=== PATIENT | male | born 1930 | race Caucasian/White ===

== ENCOUNTER 2017-01-13 13:29 | Emergency (ER) | payer MEDICARE, BC ==
--- NOTE | 2017-01-13 14:15 | ED ---
General Adult HPI - General Chief complaint: Recheck/Abnormal Lab/Rx Stated complaint: Poss HBP Time Seen by Provider: 01/13/17 14:01 Source: patient, family, RN notes reviewed, old records reviewed Mode of arrival: wheelchair Limitations: no limitations - History of Present Illness Initial comments: Chief complaint and history of present illness is a 6-year-old male here with his . Patient reports that they're checking her blood pressures morning his was high. They went to a local pharmacy remained high on arrival to emergency room patient's blood pressure was 199/106. Irritate his blood pressure pills for the morning. He hadspecific symptoms other than a little comfort to the top of his head. No evidence or complaints of any neuro deficits. No chest pain shortness of breath patient's otherwise alert - Related Data Home Medications Medication Instructions Recorded Confirmed Allopurinol [Zyloprim] 100 mg PO DAILY 04/25/16 01/13/17 Aspirin EC [Ecotrin Low Dose] 81 mg PO DAILY 04/25/16 01/13/17 Atorvastatin [Lipitor] 20 mg PO HS 04/25/16 01/13/17 Fish Oil/Dha/Epa [Fish Oil 1,200 1 cap PO DAILY@1200 04/25/16 01/13/17 mg Fish Oil] Latanoprost [Xalatan 0.005%] 1 drop BOTH EYES HS 04/25/16 01/13/17 Lutein 20 mg PO DAILY@1200 04/25/16 01/13/17 Nitroglycerin Sl Tabs [Nitrostat] 0.4 mg SUBLINGUAL Q5M PRN 04/25/16 01/13/17 Vit C/E/Zn/Coppr/Lutein/Zeaxan 1 cap PO BID@0800,1200 04/25/16 01/13/17 [Preservision Areds 2 Softgel] Vitamin E 1,000 unit PO DAILY@1200 04/25/16 01/13/17 Amiodarone [Cordarone] 50 mg PO DAILY 05/29/16 01/13/17 Carvedilol 6.25 mg PO HS 05/29/16 01/13/17 Lisinopril 40 mg PO DAILY 01/13/17 01/13/17 Allergies Allergy/AdvReac Type Severity Reaction Status Date / Time No Known Allergies Allergy Verified 01/13/17 13:56 Review of Systems ROS Statement: Those systems with pertinent positive or pertinent negative responses have been documented in the HPI. Review of systems no complaint of headache chest pain shortness of breath GI problems he reports he had a mild funny sensation in the top of his head. All systems are reviewed. 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 He's had an UT, hyperlipidemia, hypertension, osteoarthritis, BPH, syncopal episode. Patient surgeries include adenoidectomy low back surgery, bowel resection, CABG, heart cath without stents. Total right knee, pacemaker last year. He did have three-vessel CABG. Family history: Cancers. Patient ALLERGIES none smoking over 35 years ago. Drinks 2 beers per day recommended by his adding machine servicer. ROS Other: All systems not noted in ROS Statement are negative. Past Medical History Past Medical History: Coronary Artery Disease (CAD), Cancer, Chest Pain / Angina , Hyperlipidemia, Hypertension, Myocardial Infarction ([place]), Osteoarthritis (OA) , Prostate Disorder, Renal Disease, Syncope Additional Past Medical History / Comment(s): colon polyps-colon ca , gout Last Myocardial Infarction Date:: 2007 or 2008 History of Any Multi-Drug Resistant Organisms: None Reported Past Surgical History: Appendectomy, Back Surgery, Bowel Resection, Coronary Bypass/CABG, Heart Catheterization, Joint Replacement, Pacemaker Additional Past Surgical History / Comment(s): Three-vessel CABG in 1987, rt knee arthroscopy, right knee replacement, turp. maco cataracts, colonoscopy last one 10 years ago without any abnormalities, maco ing hernia repair, precancerous lesions on scalp lasered off. Past Anesthesia/Blood Transfusion Reactions: No Reported Reaction Type of Cardiac Device: Permanent Pacemaker Device Placement Date:: 05-24-16 Past Psychological History: No Psychological Hx Reported Additional Psychological History / Comment(s): PT IS BUT HIS LIVES IN [facility]. PT IS INDEPENDANT-NO OUTSIDE SERVICES. Smoking Status: Former smoker Past Alcohol Use History: Daily Additional Past Alcohol Use History / Comment(s): Patient smoked one pack per day for 40 years and quit in 1979. No marijuana or street drug use. He drinks 1-2 beers per day. Past Drug Use History: None Reported - Past Family History Mother Family Medical History: Cancer Additional Family Medical History / Comment(s): Mother at age 76 from stomach cancer Father Family Medical History: Cancer Additional Family Medical History / Comment(s): Father at age 76 from colon cancer Brother(s) Family Medical History: Cancer Additional Family Medical History / Comment(s): One brother at age 42 from brain cancer. One brother had myocardial infarction at age 29. Patient had a total of 4 brothers. Patient has 4 sisters with no major medical problems. Patient has 4 children, 2 boys and 2 girls. One son from a hunting accident. General Exam - General Exam Comments Initial Comments: General: The patient is awake and alert, in no distress, and does not appear acutely ill. Here because his blood pressure was high at home and at his pharmacy. His only symptom or complaint of be mild tingling to the top of his head. But no headache or other problems no neuro deficits. Vital signs shows temperature 97.0 pulse 68 respiratory rate 18 pulse ox 98% on room air blood pressure 199/ 106. Eye: Pupils are equal, round and reactive to light, extra-ocular movements are intact ; there is normal conjunctiva bilaterally. No signs of icterus. Ears, nose, mouth and throat: There are moist mucous membranes and no oral lesions. Neck: The neck is supple, there is no tenderness . Cardiovascular: There is a regular rate and rhythm. No murmur, rub or gallop is appreciated. Respiratory: Lungs are clear to auscultation, respirations are non-labored, breath sounds are equal. No wheezes, stridor, rales, or rhonchi. Gastrointestinal: No abdominal pain, no nausea no vomiting no organomegaly. Back: No complaint of back pain at this time. No flank discomfort. Musculoskeletal: Normal ROM, no tenderness, There is no pedal edema. There is no calf tenderness or swelling. Sensation intact. Patient states he is able to walk around [place] without becoming winded. Neurological: CN II-XII intact, There are no obvious motor or sensory deficits. Coordination appears grossly intact. Speech is normal. No focal or lateralizing findings. Skin: Skin is warm and dry and no rashes or lesions are noted. Gait is thin there are some bruises on the elbow. Limitations: no limitations Course Vital Signs 01/13/17 01/13/17 01/13/17 13:37 13:52 14:56 Temperature 97 F L Pulse Rate 66 68 68 Respiratory 20 18 18 Rate Blood Pressure 196/92 199/106 201/104 O2 Sat by Pulse 95 98 93 L Oximetry 01/13/17 01/13/17 01/13/17 15:36 16:21 17:12 Temperature Pulse Rate 59 L 61 67 Respiratory 18 18 18 Rate Blood Pressure 174/91 187/95 183/95 O2 Sat by Pulse 96 96 95 Oximetry 01/13/17 17:36 Temperature Pulse Rate 66 Respiratory 18 Rate Blood Pressure 168/78 O2 Sat by Pulse 94 L Oximetry Medical Decision Making - Medical Decision Making Medical decision making patient's white count 6.2 hemoglobin 15 hematocrit of 43 , potassium 4.9 BUN 31 creatinine 1.7 with a GFR of only 38. The patient will receive labetalol 10 mg IV push for elevated blood pressure His blood pressure came down to the 160 range systolic. He is feeling better the plans for the patient be discharged home advised to call follow-up with family physician continuous home education's. He is to return emergency room if is any difficulties. - Lab Data Result diagrams: 01/13/17 14:21 01/13/17 14:21 Lab Results 01/13/17 01/13/17 Range/Units 14:21 14:21 WBC 6.2 (3.8-10.6) k/uL RBC 4.48 (4.30-5.90) m/uL Hgb 15.1 (13.0-17.5) gm/dL Hct 43.4 (39.0-53.0) % MCV 96.9 (80.0-100.0) fL MCH 33.8 (25.0-35.0) pg MCHC 34.9 (31.0-37.0) g/dL RDW 13.4 (11.5-15.5) % Plt Count 156 (150-450) k/uL Neutrophils % 63 % Lymphocytes % 23 % Monocytes % 8 % Eosinophils % 2 % Basophils % 1 % Neutrophils # 3.9 (1.3-7.7) k/uL Lymphocytes # 1.4 (1.0-4.8) k/uL Monocytes # 0.5 (0-1.0) k/uL Eosinophils # 0.1 (0-0.7) k/uL Basophils # 0.1 (0-0.2) k/uL Sodium 142 (137-145) mmol/L Potassium 4.9 (3.5-5.1) mmol/L Chloride 108 H (98-107) mmol/L Carbon Dioxide 22 (22-30) mmol/L Anion Gap 12 mmol/L BUN 31 H (9-20) mg/dL Creatinine 1.70 H (0.66-1.25) mg/dL Est GFR (MDRD) Af Amer 47 (>60 ml/min/1.73 sqM) Est GFR (MDRD) Non-Af 38 (>60 ml/min/1.73 sqM) Glucose 89 (74-99) mg/dL Calcium 9.5 (8.4-10.2) mg/dL Total Bilirubin 1.0 (0.2-1.3) mg/dL AST 33 (17-59) U/L ALT 34 (21-72) U/L Alkaline Phosphatase 80 (38-126) U/L Total Protein 7.3 (6.3-8.2) g/dL Albumin 4.3 (3.5-5.0) g/dL Disposition Clinical Impression: Essential hypertension Disposition: HOME SELF-CARE Condition: Fair Instructions: Hypertension (ED) Additional Instructions: Medications as directed. If you blood pressure significantly elevated cannot bring it down by taking 1 extra tablet of your blood pressure pills follow-up with family physician or return emergency room Time of Disposition: 17:45
[2017-01-13 14:55] LABS: Calcium 9.5 mg/dL (8.4-10.2); Potassium 4.9 mmol/L (3.5-5.1); Total Protein 7.3 g/dL (6.3-8.2)
[2017-01-13 15:03] LABS: Basophils # (A) 0.1 k/uL (0-0.2); Basophils % (A) 1 %; CH 33.4; CHCM 34.6; Eosinophils # (A) 0.1 k/uL (0-0.7); Eosinophils % (A) 2 %; HCT 43.4 % (39.0-53.0); HDW 2.71; HGB 15.1 gm/dL (13.0-17.5); Luc % (Auto) 3; Lymphocytes # (A) 1.4 k/uL (1.0-4.8); Lymphocytes % (A) 23 %; MCH 33.8 pg (25.0-35.0); MCHC 34.9 g/dL (31.0-37.0); MCV 96.9 fL (80.0-100.0); Mean Platelet Volume 6.9; Monocytes # (A) 0.5 k/uL (0-1.0); Monocytes % (A) 8 %; Neutrophils # (A) 3.9 k/uL (1.3-7.7); Neutrophils % (A) 63 %; RBC 4.48 m/uL (4.30-5.90); RDW 13.4 % (11.5-15.5); WBC 6.2 k/uL (3.8-10.6); WBC (Perox) 5.94
[2017-01-13] MEDS ORDERED: LABETALOL 5 MG/ML VIAL MDV IVP STA (15:14)
[2017-01-13] MEDS ORDERED: ENALAPRILAT 1.25 MG/ML 1 ML VIAL IVP STA (16:15)
[2017-01-13 18:27] VITALS: BP 177/86; PULSE 69; RESP 16; TEMP 97.7
== END 2017-01-13 18:41 | disposition home or self-care (01) ==
LOC: EC 13:29
DX: I10 Essential (primary) hypertension (principal); I25.10 Atherosclerotic heart disease of native coronary artery without angina pectoris; E78.5 Hyperlipidemia, unspecified; I25.2 Old myocardial infarction; Z95.0 Presence of cardiac pacemaker; Z95.1 Presence of aortocoronary bypass graft; Z79.82 Long term (current) use of aspirin; Z79.899 Other long term (current) drug therapy; Z87.891 Personal history of nicotine dependence
CPT/HCPCS: 36415; 80053; 85025; 93005; 96374; 96375; 99284

== ENCOUNTER 2017-02-28 14:12 | Observation (INO) | payer MEDICARE, BC ==
--- NOTE | 2017-02-28 14:51 | ED ---
General Adult HPI - General Chief complaint: Chest Pain Stated complaint: Chest pain Time Seen by Provider: 02/28/17 14:15 Source: patient, RN notes reviewed Mode of arrival: wheelchair Limitations: no limitations - History of Present Illness Initial comments: This is a 86-year-old male with past medical history significant for coronary artery disease. Patient has had bypass surgery as well as a pacemaker placed. Patient comes in today because he was dizzy today. Patient states he felt a little nauseated but did not vomit. Patient states had to grab onto something he would've fallen down. Patient states also associated with that he was having some chest tightness and felt short of breath. Patient states he did not have any palpitations. Patient denies any recent fever or chills. Patient denies any abdominal pain patient denies any vomiting or diarrhea recently. Patient denies any near syncopal episodes. Patient states he has had a couple previous episodes of dizziness but they were not associated with chest pain difficulty breathing and the dizziness episodes in the past have been considerably worse than this one. Patient states few days that he had a dizzy episode and he did vomit. Patient also complains of posterior neck pain into the occipital region of his head. Patient states she does have full range of motion of his neck however. - Related Data Home Medications Medication Instructions Recorded Confirmed Allopurinol [Zyloprim] 100 mg PO DAILY 04/25/16 02/28/17 Aspirin EC [Ecotrin Low Dose] 81 mg PO DAILY 04/25/16 02/28/17 Atorvastatin [Lipitor] 20 mg PO HS 04/25/16 02/28/17 Fish Oil/Dha/Epa [Fish Oil 1,200 1 cap PO DAILY@1200 04/25/16 02/28/17 mg Fish Oil] Latanoprost [Xalatan 0.005%] 1 drop BOTH EYES HS 04/25/16 02/28/17 Lutein 20 mg PO DAILY@1200 04/25/16 02/28/17 Nitroglycerin Sl Tabs [Nitrostat] 0.4 mg SUBLINGUAL Q5M PRN 04/25/16 02/28/17 Vit C/E/Zn/Coppr/Lutein/Zeaxan 1 cap PO BID@0800,1200 04/25/16 02/28/17 [Preservision Areds 2 Softgel] Vitamin E 1,000 unit PO DAILY@1200 08/09/16 06/14/17 Amiodarone [Cordarone] 50 mg PO DAILY 05/29/16 02/28/17 Carvedilol 6.25 mg PO HS 05/29/16 02/28/17 Lisinopril 30 mg PO DAILY 02/28/17 02/28/17 amLODIPine [Norvasc] 2.5 mg PO DAILY 02/28/17 02/28/17 Allergies Allergy/AdvReac Type Severity Reaction Status Date / Time No Known Allergies Allergy Verified 02/28/17 15:19 Review of Systems ROS Statement: Those systems with pertinent positive or pertinent negative responses have been documented in the HPI. ROS Other: All systems not noted in ROS Statement are negative. Past Medical History Past Medical History: Coronary Artery Disease (CAD), Cancer, Chest Pain / Angina , Hyperlipidemia, Hypertension, Myocardial Infarction ([place]), Osteoarthritis (OA) , Prostate Disorder, Renal Disease, Syncope Additional Past Medical History / Comment(s): colon polyps-colon ca , gout Last Myocardial Infarction Date:: 2007 or 2008 History of Any Multi-Drug Resistant Organisms: None Reported Past Surgical History: Appendectomy, Back Surgery, Bowel Resection, Coronary Bypass/CABG, Heart Catheterization, Joint Replacement, Pacemaker Additional Past Surgical History / Comment(s): Three-vessel CABG in 1987, rt knee arthroscopy, right knee replacement, turp. maco cataracts, colonoscopy last one 10 years ago without any abnormalities, maco ing hernia repair, precancerous lesions on scalp lasered off. Past Anesthesia/Blood Transfusion Reactions: No Reported Reaction Type of Cardiac Device: Permanent Pacemaker Device Placement Date:: 05-24-16 Past Psychological History: No Psychological Hx Reported Additional Psychological History / Comment(s): PT IS BUT HIS LIVES IN [facility]. PT IS INDEPENDANT-NO OUTSIDE SERVICES. Smoking Status: Former smoker Past Alcohol Use History: Daily Additional Past Alcohol Use History / Comment(s): Patient smoked one pack per day for 40 years and quit in 1979. No marijuana or street drug use. He drinks 1-2 beers per day. Past Drug Use History: None Reported - Past Family History Mother Family Medical History: Cancer Additional Family Medical History / Comment(s): Mother at age 76 from stomach cancer Father Family Medical History: Cancer Additional Family Medical History / Comment(s): Father at age 76 from colon cancer Brother(s) Family Medical History: Cancer Additional Family Medical History / Comment(s): One brother at age 42 from brain cancer. One brother had myocardial infarction at age 29. Patient had a total of 4 brothers. Patient has 4 sisters with no major medical problems. Patient has 4 children, 2 boys and 2 girls. One son from a hunting accident. General Exam - General Exam Comments Initial Comments: GENERAL: Patient is well-developed and well-nourished. Patient is nontoxic and well- hydrated and is in no acute distress. ENT: Neck is soft and supple. No significant lymphadenopathy is noted. Oropharynx is clear. Moist mucous membranes. Neck has full range of motion without eliciting any pain. EYES: The sclera were anicteric and conjunctiva were pink and moist. Extraocular movements were intact and pupils were equal round and reactive to light. Eyelids were unremarkable. PULMONARY: Unlabored respirations. Good breath sounds bilaterally. Scattered crackles right base CARDIOVASCULAR: There is a regular rate and rhythm without any murmurs gallops or rubs. ABDOMEN: Soft and nontender with normal bowel sounds. No palpable organomegaly was noted. There is no palpable pulsatile mass. SKIN: Skin is clear with no lesions or rashes and otherwise unremarkable. NEUROLOGIC: Patient is alert and oriented x3. Cranial nerves II through XII are grossly intact. Motor and sensory are also intact. Normal speech, volume and content. Symmetrical smile. Finger to nose testing is normal bilaterally MUSCULOSKELETAL: Normal extremities with adequate strength and full range of motion. No lower extremity swelling or edema. No calf tenderness. LYMPHATICS: No significant lymphadenopathy is noted PSYCHIATRIC: Normal psychiatric evaluation. Normal interpersonal interactions appears functionally intact in deals appropriately with others. No signs of depression. No signs of anxiety. Limitations: no limitations Course Vital Signs 02/28/17 02/28/17 02/28/17 14:14 15:14 15:33 Temperature 97.5 F L 97.6 F Pulse Rate 75 73 Pulse Rate [ 71 Incident Response Consultant ] Respiratory 18 18 18 Rate Blood Pressure 192/85 133/80 O2 Sat by Pulse 99 95 Oximetry Medical Decision Making - Medical Decision Making EKG shows normal sinus rhythm at 77 bpm ND interval is 208 QRSs 158 QT interval is 428 QTC is 484. Patient's EKG shows no ST segment elevation or depression. Chest x-ray shows no acute abnormality. Patient continues to be dizzy and have some intermittent chest tightness. - Lab Data Result diagrams: 02/28/17 14:35 02/28/17 14:35 Lab Results 02/28/17 02/28/17 02/28/17 Range/Units 14:35 14:35 14:35 WBC 7.3 (3.8-10.6) k/uL RBC 4.25 L (4.30-5.90) m/uL Hgb 14.0 (13.0-17.5) gm/dL Hct 40.4 (39.0-53.0) % MCV 95.0 (80.0-100.0) fL MCH 33.0 (25.0-35.0) pg MCHC 34.7 (31.0-37.0) g/dL RDW 13.2 (11.5-15.5) % Plt Count 154 (150-450) k/uL Neutrophils % 72 % Lymphocytes % 18 % Monocytes % 7 % Eosinophils % 1 % Basophils % 1 % Neutrophils # 5.3 (1.3-7.7) k/uL Lymphocytes # 1.3 (1.0-4.8) k/uL Monocytes # 0.5 (0-1.0) k/uL Eosinophils # 0.1 (0-0.7) k/uL Basophils # 0.0 (0-0.2) k/uL PT (9.0-12.0) sec INR (<1.1) APTT (22.0-30.0) sec Sodium 142 (137-145) mmol/L Potassium 4.2 (3.5-5.1) mmol/L Chloride 109 H (98-107) mmol/L Carbon Dioxide 21 L (22-30) mmol/L Anion Gap 12 mmol/L BUN 36 H (9-20) mg/dL Creatinine 1.81 H (0.66-1.25) mg/dL Est GFR (MDRD) Af Amer 43 (>60 ml/min/1.73 sqM) Est GFR (MDRD) Non-Af 36 (>60 ml/min/1.73 sqM) Glucose 137 H (74-99) mg/dL Calcium 9.3 (8.4-10.2) mg/dL Magnesium 2.1 (1.6-2.3) mg/dL Total Bilirubin 0.9 (0.2-1.3) mg/dL AST 22 (17-59) U/L ALT 25 (21-72) U/L Alkaline Phosphatase 80 (38-126) U/L Total Creatine Kinase 112 (55-170) U/L CK-MB (CK-2) 3.4 H* (0.0-2.4) ng/mL CK-MB (CK-2) Rel Index 3.0 Troponin I <0.012 (0.000-0.034) ng/mL Total Protein 7.0 (6.3-8.2) g/dL Albumin 4.3 (3.5-5.0) g/dL 02/28/17 Range/Units 14:35 WBC (3.8-10.6) k/uL RBC (4.30-5.90) m/uL Hgb (13.0-17.5) gm/dL Hct (39.0-53.0) % MCV (80.0-100.0) fL MCH (25.0-35.0) pg MCHC (31.0-37.0) g/dL RDW (11.5-15.5) % Plt Count (150-450) k/uL Neutrophils % % Lymphocytes % % Monocytes % % Eosinophils % % Basophils % % Neutrophils # (1.3-7.7) k/uL Lymphocytes # (1.0-4.8) k/uL Monocytes # (0-1.0) k/uL Eosinophils # (0-0.7) k/uL Basophils # (0-0.2) k/uL PT 10.6 (9.0-12.0) sec INR 1.0 (<1.1) APTT 25.2 (22.0-30.0) sec Sodium (137-145) mmol/L Potassium (3.5-5.1) mmol/L Chloride (98-107) mmol/L Carbon Dioxide (22-30) mmol/L Anion Gap mmol/L BUN (9-20) mg/dL Creatinine (0.66-1.25) mg/dL Est GFR (MDRD) Af Amer (>60 ml/min/1.73 sqM) Est GFR (MDRD) Non-Af (>60 ml/min/1.73 sqM) Glucose (74-99) mg/dL Calcium (8.4-10.2) mg/dL Magnesium (1.6-2.3) mg/dL Total Bilirubin (0.2-1.3) mg/dL AST (17-59) U/L ALT (21-72) U/L Alkaline Phosphatase (38-126) U/L Total Creatine Kinase (55-170) U/L CK-MB (CK-2) (0.0-2.4) ng/mL CK-MB (CK-2) Rel Index Troponin I (0.000-0.034) ng/mL Total Protein (6.3-8.2) g/dL Albumin (3.5-5.0) g/dL Disposition Clinical Impression: Chest pain, Dizziness Disposition: ADMITTED IP TO THIS HOSP Referrals: Reyes Dela Cruz MD [Primary Care Provider] - 1-2 days Time of Disposition: 16:01
[2017-02-28 15:13] LABS: Basophils % (A) 1 %; CH 33.1; CHCM 35.1; Eosinophils # (A) 0.1 k/uL (0-0.7); Eosinophils % (A) 1 %; HCT 40.4 % (39.0-53.0); HDW 2.64; Luc # (Auto) 0.15; Luc % (Auto) 2; Lymphocytes # (A) 1.3 k/uL (1.0-4.8); Lymphocytes % (A) 18 %; MCHC 34.7 g/dL (31.0-37.0); Mean Platelet Volume 6.8; Monocytes # (A) 0.5 k/uL (0-1.0); Monocytes % (A) 7 %; Neutrophils # (A) 5.3 k/uL (1.3-7.7); Neutrophils % (A) 72 %; RBC 4.25 m/uL (4.30-5.90); RDW 13.2 % (11.5-15.5); WBC 7.3 k/uL (3.8-10.6); WBC (Perox) 7.28
--- NOTE | 2017-02-28 15:19 | CT ---
EXAMINATION TYPE: CT brain wo con DATE OF EXAM: 02/28/2017 COMPARISON: 05/22/2016 INDICATION: Patient complains of low posterior head/neck pressure and dizziness. DLP: 800.7 mGycm, Automated exposure control for dose reduction was used. CONTRAST: None CT of the brain is performed utilizing 3 mm thick sections through the posterior fossa and 3 mm thick sections through the remaining calvarium. Study is performed within 24 hours of arrival to the hosp ital. No abnormal hyperdensity is present to suggest an acute intracranial hemorrhage. No mass lesion is evident. No acute infarcts are evident. Some minimal periventricular white matter hypodensity may be present, likely on the basis of chronic white matter ischemic change. Ventricles and sulci are slightly prominent for the patient age. Paranasal sinuses and mastoid air cells within the [id number] are clear. IMPRESSIONS: 1. Mild age-related atrophy.
[2017-02-28 15:20] LABS: Calcium 9.3 mg/dL (8.4-10.2); Magnesium 2.1 mg/dL (1.6-2.3); Potassium 4.2 mmol/L (3.5-5.1); Total Bilirubin 0.9 mg/dL (0.2-1.3)
[2017-02-28 15:21] LABS: Partial Thromboplastin Time 25.2 sec (22.0-30.0); Prothrombin Time 10.6 sec (9.0-12.0)
--- NOTE | 2017-02-28 15:23 | XR ---
EXAMINATION TYPE: XR chest 2V DATE OF EXAM: 02/28/2017 COMPARISON: Chest x-ray May 29, 2016. HISTORY: Chest pain and dizziness. TECHNIQUE: Frontal and lateral views of the chest are obtained. FINDINGS: Post-CABG changes with mediastinal clips and sternal wires is again seen. There is chronic parenchymal change without suspicious focal air space opacity, pleural effusion, or pneumothorax see n. The cardiac silhouette size remains within normal limits with dual lead pacemaker redemonstrated. The osseous structures are intact. IMPRESSION: Chronic changes without acute process. No significant change from prior.
[2017-02-28 15:33] LABS: Creatine Kinase 112 U/L (55-170)
[2017-02-28 15:46] LABS: Troponin I <0.012 ng/mL (0.000-0.034)
[2017-02-28 15:57] LABS: Creatine Kinase MB 3.4 ng/mL (0.0-2.4)
[2017-02-28] MEDS ORDERED: NITROGLYCERIN SL TABS 0.4 MG TAB SUBLINGUAL PRN ×2 (16:04→18:32)
[2017-02-28] MEDS ORDERED: ASPIRIN 81 MG CHEW PO STA (16:04)
[2017-02-28] MEDS ORDERED: MECLIZINE 12.5 MG TAB PO PRN (16:17)
[2017-02-28] MEDS: NITROGLYCERIN OINT 1 INCH/GM PACKET TOPICAL SCH ×2 (18:35→23:02)
[2017-02-28 20:59] LABS: Creatine Kinase 107 U/L (55-170)
[2017-02-28] MEDS ORDERED: ATORVASTATIN 20 MG TAB PO SCH (21:00)
[2017-02-28] MEDS ORDERED: CARVEDILOL 6.25 MG TAB PO SCH (21:00)
[2017-02-28] MEDS ORDERED: LATANOPROST 0.005% OPHTH DROPS 2.5 ML BTL BOTH EYES SCH (21:00)
[2017-02-28 21:11] LABS: Troponin I <0.012 ng/mL (0.000-0.034)
[2017-02-28 21:13] LABS: Creatine Kinase MB 3.6 ng/mL (0.0-2.4)
[2017-02-28 22:09] LABS: Appearance,Urine Clear (Clear); Bilirubin,Urine Negative (Negative); Glucose,Urine (UA) Negative (Negative); Ketones,Urine Negative (Negative); Leukocyte Esterase,Urine Negative (Negative); Nitrite,Urine Negative (Negative); PH, Urine 5.5 (5.0-8.0); Protein,Urine Negative (Negative); UA Billing (MACRO vs. MICRO) CHEM; Urobilinogen,Urine <2.0 mg/dL (<2.0)
[2017-02-28] MEDS: HEPARIN SODIUM,PORCINE 5,000 UNIT/ML 1 ML VIAL SQ SCH (23:01)
[2017-03-01 03:21] LABS: Cholesterol 101 mg/dL (<200); HDL Cholesterol 34 mg/dL (40-60); Triglycerides 97 mg/dL (<150)
[2017-03-01 03:34] LABS: Troponin I 0.014 ng/mL (0.000-0.034)
[2017-03-01 03:36] LABS: Creatine Kinase MB 2.7 ng/mL (0.0-2.4)
[2017-03-01] MEDS: NITROGLYCERIN OINT 1 INCH/GM PACKET TOPICAL SCH (04:11)
[2017-03-01 07:40] VITALS: RESP 16; TEMP 97.5
[2017-03-01] MEDS: HEPARIN SODIUM,PORCINE 5,000 UNIT/ML 1 ML VIAL SQ SCH (08:04)
[2017-03-01] MEDS: VIT A,C & E-LUTEIN-MINERALS 1 EACH TAB PO SCH ×2 (08:05→12:35)
--- NOTE | 2017-03-01 08:17 | CONS ---
DATE OF CONSULTATION: Mr. Lopez is an 86-year-old male with known history of coronary artery disease, status post coronary artery bypass grafting, history of permanent pacemaker implantation, who presented to the emergency room yesterday with symptoms of head and neck discomfort and subsequently some fullness in the chest. He was working outside, went inside and felt to have tension in the head and in the back. He felt slightly dizzy and slightly dyspneic. Because of that, he came into the emergency room, subsequently admitted. He is feeling better at this time. He is reasonably active physically, has some dyspnea on exertion at times. Right episode of chest discomfort. He had a pacemaker implantation that was implanted because of her prior episode of syncope and trivascular block. He has no clear PND, orthopnea, or peripheral edema. He had no recent syncopal episode. His coronary artery bypass grafting was performed in 1987. He has underwent cardiac catheterization in 2006 and at that time he had a patent NICOLAS to the LAD with totally occluded saphenous vein graft to the RCA into the obtuse marginal branch. He had an echocardiogram performed in April of 2016 that revealed preserved left ventricular size and systolic function with mild mitral and tricuspid regurgitation. His permanent pacemaker implantation was done in May of 2016. His coronary risk factors are positive for hypertension, hyperlipidemia, he is nondiabetic, nonsmoker. His medications include the amlodipine 2.5 mg daily, lutein, lisinopril 30 mg daily, Coreg 6.25 mg daily, Lipitor 20 mg daily, aspirin once a day, amiodarone 50 mg daily and allopurinol. REVIEW OF SYSTEMS: RESPIRATORY SYSTEM: He has occasional episode of dyspnea. No recent wheezing or cough. GI SYSTEM: No recent GI bleeding. No peptic ulcer disease. SYSTEM: No dysuria or hematuria. NERVOUS SYSTEM: No history of stroke or seizure. Past medical history is remarkable for history of coronary artery bypass grafting, prior ablation for atrial flutter, permanent pacemaker implantation. PHYSICAL EXAMINATION: He is an 86-year-old male, alert, oriented, in no apparent distress. Blood pressure 133/80 with a heart in the 80s. HEAD: Normocephalic. EYES: Sclerae nonicteric. NECK: Good upstroke. No bruit. No jugular venous distention. LUNGS: Clear to auscultation. HEART: Regular rate and rhythm. S1, S2, no S3, with systolic murmur 2/6, early peaking. No diastolic murmur. No rub. ABDOMEN: Soft, nontender, positive bowel sounds. No organomegaly. EXTREMITIES: No edema. Intact distal pulses. EKG reveals sinus mechanism with right bundle branch block, first-degree block and left axis deviation. Troponin less than 0.012 and 0.014, cholesterol 101, LDL of 48. BUN and creatinine 36 and 1.81, potassium of 4.2. Hemoglobin of 14. Chest x-ray shows no acute infiltrate. CT scan of the head shows no acute changes. IMPRESSION: 1. Vague symptoms of chest discomfort with no evidence of acute coronary syndrome in a patient with known history of coronary artery disease and occluded graft. 2. Symptoms of neck and back and head discomfort, atypical for cardiac etiology. 3. Prior episode of dizziness with no evidence of pacemaker malfunction. 4. History of hypertension. 5. History of hyperlipidemia. 6. Prior history of arrhythmia. RECOMMENDATION: I will stop his amiodarone at this time. I will change his Coreg 3.125 mg twice a day. I will obtain echocardiogram with Doppler, increase his level of activity. If he has no further symptoms, then I expect he should be able to be discharged home today and followed as an outpatient. Thank you for this consult. Will follow with you.
[2017-03-01] MEDS ORDERED: LISINOPRIL 10 MG TAB PO SCH (09:00)
[2017-03-01] MEDS ORDERED: ASPIRIN 81 MG CHEW PO SCH (09:00)
[2017-03-01] MEDS ORDERED: ALLOPURINOL 100 MG TAB PO SCH (09:00)
[2017-03-01] MEDS ORDERED: AMIODARONE 50 MG TAB PO SCH (09:00)
[2017-03-01] MEDS ORDERED: CARVEDILOL 3.125 MG TAB PO SCH (09:00)
[2017-03-01] MEDS ORDERED: ASPIRIN 325 MG TAB PO SCH (09:00)
[2017-03-01] MEDS ORDERED: amLODIPine 2.5 MG TAB PO SCH (09:00)
--- NOTE | 2017-03-01 10:12 | ECHOF ---
Referral Reason: MEASUREMENTS -------- HEIGHT: 177.8 cm WEIGHT: 78.0 kg BP: 166/81 IVSd: 1.0 cm (0.6 - 1.1) LVIDd: 3.8 cm (3.9 - 5.3) LVPWd: 1.1 cm (0.6 - 1.1) IVSs: 1.9 cm LVIDs: 1.9 cm LVPWs: 1.8 cm Ao Diam: 4.3 cm (2.0 - 3.7) AV Cusp: 1.9 cm (1.5 - 2.6) LA Diam: 3.4 cm (2.7 - 3.8) MV EXCURSION: 12.148 mm (> 18.000) MV EF SLOPE: 49 mm/s (70 - 150) EPSS: 0.8 cm MV E John: 0.60 m/s MV DecT: 401 ms MV A John: 1.04 m/s MV E/A Ratio: 0.58 AR PHT: 284 ms RAP: 5.00 mmHg RVSP: 13.39 mmHg FINDINGS -------- Sinus rhythm. Pacemaker This was a technically good study. Left ventricular wall thickness is normal. Overall left ventricular systolic function is low-normal with, an EF between 50 - 55 %. The right ventricle is normal in size and function. The left atrium is normal in size. The right atrium is normal in size. Aneurysmal Interatrial septum. Aortic valve is trileaflet and is mildly thickened. There is mild aortic regurgitation. The mitral valve leaflets are mildly thickened. Mild mitral regurgitation is present. Mild tricuspid regurgitation present. The right ventricular systolic pressure, as measured by Doppler, is 13.39mmHg. Pulmonic valve appears structurally normal. The aortic root is moderately dilated. The pericardium is normal. CONCLUSIONS -------- 1. Sinus rhythm. 2. Aortic valve is trileaflet and is mildly thickened. 3. There is mild aortic regurgitation. 4. The mitral valve leaflets are mildly thickened. 5. Mild mitral regurgitation is present. 6. Mild tricuspid regurgitation present. 7. The right ventricular systolic pressure, as measured by Doppler, is 13.39mmHg. 8. Pulmonic valve appears structurally normal. 9. The aortic root is moderately dilated. 10. The pericardium is normal. 11. Pacemaker 12. This was a technically good study. 13. Left ventricular wall thickness is normal. 14. Overall left ventricular systolic function is low-normal with, an EF between 50 - 55 %. 15. The right ventricle is normal in size and function. 16. The left atrium is normal in size. 17. The right atrium is normal in size. 18. Aneurysmal Interatrial septum. SAMPLE DISPLAY PREPARER: Smiley Portillo RDCS
[2017-03-01 11:45] VITALS: BP 123/67; PULSE 93
[2017-03-01] MEDS ORDERED: NON-FORMULARY DRUG (Fish Oil/Dha/Epa [Fish Oil 1,200 Mg Fish Oil] 1 CAP) PO SCH (12:00)
[2017-03-01] MEDS ORDERED: NON-FORMULARY DRUG (Lutein [Lutein] 20 MG) PO SCH (12:00)
[2017-03-01] MEDS ORDERED: VITAMIN E (DL,TOCOPHERYL ACET) 400 UNIT CAP PO SCH (12:00)
--- NOTE | 2017-03-01 16:21 | P.HPIM ---
History of Present Illness H&P Date: 03/01/17 Chief Complaint: Headache, neck pain, nausea, dizziness, chest pressure HISTORY AND PHYSICAL AND DISCHARGE SUMMARY: This is an 85-year-old male . His primary care physician is Dr. Dela Cruz with a past medical history of myocardial infarction with CAD status post 3 vessel coronary artery bypass in 1987 with heart catheterization 2007 revealed patent NICOLAS to LAD, vein graft to OM and stenosis of vein graft to the RCA, history of benign prostatic hypertrophy, and history of atrial flutter. Dr. Carmona is his concrete saw operator. Patient gives history of Sunday having chest pressure and a funny feeling. He states he was outside spraying weed killer then he went in the house and had some soup. He sat in his recliner developed pressure in the back of his head and neck with nausea without vomiting. He checked his blood pressure but it was fine. He gives history that in [place] his physician took him off a pill because he was having dizziness and approximate one month ago he saw Dr. Aragon 's nurse practitioner and his blood pressure was high and he was placed back on the medication. He states 3-4 weeks ago he had an episode where he was walking his usual distance and it got to about [address] and developed shortness of breath and felt he had to stop. The next day he walked the same distance and was fine. Patient was brought into [facility] emergency center for evaluation. He was placed in the observation unit where he was seen by Dr. Carmona. Echocardiogram revealed EF of 50-55%, mild aortic regurgitation, mild mitral regurgitation, mild tricuspid regurgitation, aortic root moderately dilated. Chest x-ray showed no acute change. CAT scan of the brain showed mild age-related atrophy. Orthostatics were positive and Dr. Carmona has discontinued amiodarone and increase Coreg to twice daily. Patient will be discharged home today in stable condition. Review of Systems All systems: negative Constitutional: Denies chills, Denies fever Eyes: denies blurred vision, denies pain Ears, nose, mouth and throat: Reports vertigo, Denies headache, Denies sore throat Cardiovascular: Reports shortness of breath, Denies chest pain, Denies syncope Respiratory: Denies cough Gastrointestinal: Denies abdominal pain, Denies diarrhea, Denies nausea, Denies vomiting Musculoskeletal: Denies myalgias Integumentary: Denies pruritus, Denies rash Neurological: Denies numbness, Denies weakness Psychiatric: Denies anxiety, Denies depression Endocrine: Denies fatigue, Denies weight change Past Medical History Past Medical History: Coronary Artery Disease (CAD), Cancer, Chest Pain / Angina , Hyperlipidemia, Hypertension, Myocardial Infarction ([place]), Osteoarthritis (OA) , Prostate Disorder, Renal Disease, Syncope Additional Past Medical History / Comment(s): colon polyps-colon ca , gout Last Myocardial Infarction Date:: 2007 or 2008 History of Any Multi-Drug Resistant Organisms: None Reported Past Surgical History: Appendectomy, Back Surgery, Bowel Resection, Coronary Bypass/CABG, Heart Catheterization, Joint Replacement, Pacemaker Additional Past Surgical History / Comment(s): Three-vessel CABG in 1987, rt knee arthroscopy, right knee replacement, turp. maco cataracts, colonoscopy last one 10 years ago without any abnormalities, maco ing hernia repair, precancerous lesions on scalp lasered off. Past Anesthesia/Blood Transfusion Reactions: No Reported Reaction Type of Cardiac Device: Permanent Pacemaker Device Placement Date:: 05-24-16 Smoking Status: Former smoker - Past Family History Mother Family Medical History: Cancer Additional Family Medical History / Comment(s): Mother at age 76 from stomach cancer Father Family Medical History: Cancer Additional Family Medical History / Comment(s): Father at age 76 from colon cancer Brother(s) Family Medical History: Cancer Additional Family Medical History / Comment(s): One brother at age 42 from brain cancer. One brother had myocardial infarction at age 29. Patient had a total of 4 brothers. Patient has 4 sisters with no major medical problems. Patient has 4 children, 2 boys and 2 girls. One son from a hunting accident. Medications and Allergies Home Medications Medication Instructions Recorded Confirmed Type Allopurinol [Zyloprim] 100 mg PO DAILY 04/25/16 02/28/17 History Aspirin EC [Ecotrin Low Dose] 81 mg PO DAILY 04/25/16 02/28/17 History Atorvastatin [Lipitor] 20 mg PO HS 04/25/16 02/28/17 History Fish Oil/Dha/Epa [Fish Oil 1,200 1 cap PO DAILY@1200 04/25/16 02/28/17 History mg Fish Oil] Latanoprost [Xalatan 0.005%] 1 drop BOTH EYES HS 04/25/16 02/28/17 History Lutein 20 mg PO DAILY@1200 04/25/16 02/28/17 History Nitroglycerin Sl Tabs [Nitrostat] 0.4 mg SUBLINGUAL Q5M PRN 04/25/16 02/28/17 History Vit C/E/Zn/Coppr/Lutein/Zeaxan 1 cap PO BID@0800,1200 04/25/16 02/28/17 History [Preservision Areds 2 Softgel] Vitamin E 1,000 unit PO DAILY@1200 04/25/16 02/28/17 History amLODIPine [Norvasc] 2.5 mg PO DAILY 02/28/17 02/28/17 History Allergies Allergy/AdvReac Type Severity Reaction Status Date / Time No Known Allergies Allergy Verified 02/28/17 15:19 Physical Exam Vitals: Vital Signs Temp Pulse Pulse Pulse Pulse Pulse Pulse 03/01/17 11:43 93 03/01/17 07:39 97.5 F L 65 03/01/17 04:00 97.9 F 89 03/01/17 03:35 02/28/17 23:47 97.9 F 62 02/28/17 23:12 02/28/17 20:00 97.8 F 89 02/28/17 19:22 02/28/17 18:54 81 82 75 02/28/17 18:13 74 02/28/17 17:50 97.5 F L 74 02/28/17 17:04 97.8 F 73 02/28/17 16:32 97.4 F L 73 Resp BP BP BP BP Pulse Ox 03/01/17 11:43 16 123/67 93 L 03/01/17 07:39 16 166/81 93 L 03/01/17 04:00 18 133/80 92 L 03/01/17 03:35 18 02/28/17 23:47 18 145/70 97 02/28/17 23:12 18 02/28/17 20:00 18 164/89 02/28/17 19:22 18 02/28/17 18:54 18 183/95 157/80 177/87 97 02/28/17 18:13 18 02/28/17 17:50 18 193/95 96 02/28/17 17:04 18 165/88 92 L 02/28/17 16:32 16 154/86 94 L Intake and Output 03/01/17 03/01/17 03/01/17 06:59 14:59 22:59 Intake Total 250 Balance 250 Intake: Oral 250 Other: Voiding Method Toilet Toilet # Voids 3 1 General appearance: average body habitus, cooperative, no acute distress - EENT Eyes: Reports anicteric sclerae, Reports EOMI, Reports PERRLA, Reports dentition normal, Reports normal apperance, Denies abnormal pupil, Denies disc margins sharp, Denies edentulous, Denies fundus normal, Denies photophobia, Denies poor dentition, Denies ptosis, Denies scleral icterus ENT: Reports hearing grossly normal, Reports normal oropharynx, Denies hard of hearing, Denies NA/AT, Denies other, Denies pharyngeal erythema, Denies thrush, Denies tonsillar exudates, Denies tonsillar swelling - Neck Neck: Reports normal ROM, Denies lymphadenopathy, Denies other, Denies rigidity , Denies stridor, Denies thyromegaly Thyroid: bilateral: normal size - Respiratory Respiratory: bilateral: CTA, negative: diminished, dullness, rales, rhonchi, wheezing, prolonged expiration - Cardiovascular Rhythm: regular Heart sounds: normal: S1, S2 Abnormal Heart Sounds: Denies systolic murmur, Denies diastolic murmur, Denies rub, Denies S3 Gallop, Denies S4 Gallop, Denies click, Denies other - Gastrointestinal General gastrointestinal: Reports normal bowel sounds, Reports soft, Denies absent bowel sounds, Denies decreased bowel sounds, Denies distended, Denies hepatomegaly, Denies hyperactive bowel sounds, Denies organomegaly, Denies rigid , Denies scaphoid, Denies splenomegaly, Denies tenderness, Denies umbilical hernia, Denies ventral hernia - Integumentary Integumentary: Reports normal, Reports normal turgor, Denies calor, Denies cellulitis, Denies cyanotic, Denies decreased turgor, Denies flushed, Denies jaundiced, Denies pale, Denies rash, Denies ulcer - Neurologic Neurologic: CNII-XII intact - Musculoskeletal Musculoskeletal: Reports gait normal, Reports strength equal bilaterally - Psychiatric Psychiatric: Reports A&O x's 3, Reports appropriate affect, Reports intact judgment & insight Results CBC & Chem 7: 02/28/17 14:35 02/28/17 14:35 Labs: Abnormal Lab Results - Last 24 Hours (Table) 02/28/17 03/01/17 03/01/17 Range/Units 20:14 01:59 01:59 CK-MB (CK-2) 3.6 H* 2.7 H* (0.0-2.4) ng/mL HDL Cholesterol 34 L (40-60) mg/dL Thrombosis Risk Factor Assmnt - Choose All That Apply Any of the Below Risk Factors Present?: Yes Other Risk Factors: Yes Each Risk Factor Represents 2 Points: Malignancy Each Risk Factor Represents 3 Points: Age 75 years or older Other congenital or acquired thrombophilia - If yes, enter type in comment: No Thrombosis Risk Factor Assessment Total Risk Factor Score: 5 Thrombosis Risk Factor Assessment Level: High Risk Assessment and Plan Plan: 1. Orthostatic hypotension. Amiodarone was discontinued and Coreg increased to twice daily. Cardiology consult appreciated. Echocardiogram as above. Troponins have been negative on 3 draws. 2 history of atrial flutter Requiring permanent pacemaker implantation last 03/2016 2. Atrial flutter asymptomatic, inactive. Amiodarone was discontinued. Coreg increased to twice daily. 3. Hypertension. Continue Coreg 3.125 mg twice daily, Norvasc 2.5 mg daily, lisinopril 30 mg changed to bedtime 4. Hyperlipidemia. Continue atorvastatin 20 g at bedtime 5. Gout. Continue allopurinol 100 mg daily 6. Chronic kidney disease stage III. Stable 7. Coronary artery disease status post CABG. Continue aspirin 81 mg daily, Lipitor daily. Coreg, lisinopril, 8. Benign prostatic hypertrophy. Discharge plan: Return home Impression and plan of care have been directed as dictated by the signing physician. Daisy Alcocer nurse practitioner acting as scribe for signing physician.
== END 2017-03-01 14:28 | disposition home or self-care (01) ==
LOC: EC 14:12 → 3OBS 16:04
PROVIDERS: ADMIT Family Medicine; ATTEND Family Medicine
DX: I25.10 Atherosclerotic heart disease of native coronary artery without angina pectoris (principal); R42 Dizziness and giddiness; I08.3 Combined rheumatic disorders of mitral, aortic and tricuspid valves; I45.10 Unspecified right bundle-branch block; R51 Headache; R11.0 Nausea; R06.02 Shortness of breath; M54.2 Cervicalgia; I25.2 Old myocardial infarction; N18.3 Chronic kidney disease, stage 3 (moderate); I12.9 Hypertensive chronic kidney disease with stage 1 through stage 4 chronic kidney disease, or unspecified chronic kidney disease; E78.5 Hyperlipidemia, unspecified; M19.90 Unspecified osteoarthritis, unspecified site; M10.9 Gout, unspecified; Z79.82 Long term (current) use of aspirin; Z79.899 Other long term (current) drug therapy; Z95.0 Presence of cardiac pacemaker; Z95.1 Presence of aortocoronary bypass graft; Z86.010 Personal history of colon polyps; Z85.038 Personal history of other malignant neoplasm of large intestine; Z87.891 Personal history of nicotine dependence; Z82.49 Family history of ischemic heart disease and other diseases of the circulatory system; I95.1 Orthostatic hypotension; I48.92 Unspecified atrial flutter; N40.0 Benign prostatic hyperplasia without lower urinary tract symptoms
CPT/HCPCS: 96372 ×2; 99285; 36415; 93005; 93306; 80061; 80053; 82550 ×2; 82553 ×2; 83735; 84484 ×2; 85025; 85610; 85730; 81003; 71020; 70450; G0378 ×2; J1644 ×2

== ENCOUNTER 2017-12-31 19:29 | Emergency (ER) | payer MEDICARE, BC ==
[2017-12-31] MEDS ORDERED: SODIUM CHLORIDE 0.9% 1,000 ML IV STA (20:25)
--- NOTE | 2017-12-31 20:31 | ED ---
General Adult HPI - General Chief complaint: Recheck/Abnormal Lab/Rx Stated complaint: HTN Time Seen by Provider: 12/31/17 20:00 Source: patient, family, RN notes reviewed, old records reviewed Mode of arrival: ambulatory Limitations: no limitations - History of Present Illness Initial comments: This is a 87-year-old male the ER for evaluation of noted elevated blood pressure. Patient concern for CVA or stroke. Patient has history of high blood pressure etc. his blood pressure quite some time is admission for from vacation, normal blood pressure be high. Patient denies any symptoms no neurological deficit no chest pain or shortness of breath no abdominal pain. No weakness or dizziness no change in vision. - Related Data Home Medications Medication Instructions Recorded Confirmed Allopurinol [Zyloprim] 100 mg PO DAILY 04/25/16 12/31/17 Aspirin EC [Ecotrin Low Dose] 81 mg PO DAILY 04/25/16 12/31/17 Atorvastatin [Lipitor] 20 mg PO HS 04/25/16 12/31/17 Fish Oil/Dha/Epa [Fish Oil 1,200 1 cap PO DAILY 04/25/16 12/31/17 mg Fish Oil] Latanoprost [Xalatan 0.005%] 1 drop BOTH EYES HS 04/25/16 12/31/17 Lutein 20 mg PO DAILY 04/25/16 12/31/17 Nitroglycerin Sl Tabs [Nitrostat] 0.4 mg SUBLINGUAL Q5M PRN 04/25/16 12/31/17 Vit C/E/Zn/Coppr/Lutein/Zeaxan 1 cap PO BID 04/25/16 12/31/17 [Preservision Areds 2 Softgel] Vitamin E 1,000 unit PO DAILY 04/25/16 12/31/17 amLODIPine [Norvasc] 2.5 mg PO DAILY 02/28/17 12/31/17 Levothyroxine Sodium [Synthroid] 25 mcg PO DAILY 12/31/17 12/31/17 Methimazole [Tapazole] 5 mg PO DAILY 12/31/17 12/31/17 Midodrine HCl [ProAmatine] 5 mg PO TID 12/31/17 12/31/17 Previous Rx's Medication Instructions Recorded Lisinopril 30 mg PO HS #0 03/01/17 Allergies Allergy/AdvReac Type Severity Reaction Status Date / Time No Known Allergies Allergy Verified 12/31/17 20:24 Review of Systems ROS Statement: Those systems with pertinent positive or pertinent negative responses have been documented in the HPI. ROS Other: All systems not noted in ROS Statement are negative. Past Medical History Past Medical History: Coronary Artery Disease (CAD), Cancer, Chest Pain / Angina , CVA/TIA, Hyperlipidemia, Hypertension, Myocardial Infarction ([place]), Osteoarthritis (OA), Prostate Disorder, Renal Disease, Syncope Additional Past Medical History / Comment(s): colon polyps-colon ca , gout, left side stroke Last Myocardial Infarction Date:: 2007 or 2008 History of Any Multi-Drug Resistant Organisms: None Reported Past Surgical History: Appendectomy, Back Surgery, Bowel Resection, Coronary Bypass/CABG, Heart Catheterization, Joint Replacement, Pacemaker Additional Past Surgical History / Comment(s): Three-vessel CABG in 1987, rt knee arthroscopy, right knee replacement, turp. maco cataracts, colonoscopy last one 10 years ago without any abnormalities, maco ing hernia repair, precancerous lesions on scalp lasered off. Past Anesthesia/Blood Transfusion Reactions: No Reported Reaction Type of Cardiac Device: Permanent Pacemaker Device Placement Date:: 05-24-16 Past Psychological History: No Psychological Hx Reported Smoking Status: Former smoker Past Alcohol Use History: None Reported Past Drug Use History: None Reported - Past Family History Mother Family Medical History: Cancer Additional Family Medical History / Comment(s): Mother at age 76 from stomach cancer Father Family Medical History: Cancer Additional Family Medical History / Comment(s): Father at age 76 from colon cancer Brother(s) Family Medical History: Cancer Additional Family Medical History / Comment(s): One brother at age 42 from brain cancer. One brother had myocardial infarction at age 29. Patient had a total of 4 brothers. Patient has 4 sisters with no major medical problems. Patient has 4 children, 2 boys and 2 girls. One son from a hunting accident. General Exam - General Exam Comments Initial Comments: NIH of 0 Limitations: no limitations General appearance: alert, in no apparent distress Head exam: Present: atraumatic, normocephalic, normal inspection Eye exam: Present: normal appearance, PERRL, EOMI. Absent: scleral icterus, conjunctival injection, periorbital swelling ENT exam: Present: normal exam, mucous membranes moist Neck exam: Present: normal inspection. Absent: tenderness, meningismus, lymphadenopathy Respiratory exam: Present: normal lung sounds bilaterally. Absent: respiratory distress, wheezes, rales, rhonchi, stridor Cardiovascular Exam: Present: regular rate, normal rhythm, normal heart sounds. Absent: systolic murmur, diastolic murmur, rubs, gallop, clicks GI/Abdominal exam: Present: soft, normal bowel sounds. Absent: distended, tenderness, guarding, rebound, rigid Extremities exam: Present: normal inspection, full ROM, normal capillary refill. Absent: tenderness, pedal edema, joint swelling, calf tenderness Back exam: Present: normal inspection Neurological exam: Present: alert, oriented X3, CN II-XII intact Psychiatric exam: Present: normal affect, normal mood Skin exam: Present: warm, dry, intact, normal color. Absent: rash Course Vital Signs 12/31/17 12/31/17 19:54 22:34 Temperature 98.7 F 98 F Pulse Rate 102 H 65 Respiratory 20 18 Rate Blood Pressure 173/86 165/97 O2 Sat by Pulse 95 98 Oximetry EKG Findings - EKG Comments: EKG Findings:: EKG shows normal sinus rhythm rate of 94, HI 160, QRS 140, QTc 472 Medical Decision Making - Medical Decision Making 87 male the ER is a symptomatically with elevated blood pressure blood pressures improved control. Patient to be discharged home - Lab Data Result diagrams: 12/31/17 20:45 12/31/17 20:45 Lab Results 12/31/17 12/31/17 12/31/17 Range/Units 20:45 20:45 20:45 WBC 7.3 (3.8-10.6) k/uL RBC 4.31 (4.30-5.90) m/uL Hgb 13.4 (13.0-17.5) gm/dL Hct 40.5 (39.0-53.0) % MCV 94.0 (80.0-100.0) fL MCH 31.1 (25.0-35.0) pg MCHC 33.0 (31.0-37.0) g/dL RDW 14.4 (11.5-15.5) % Plt Count 118 L (150-450) k/uL Neutrophils % 65 % Lymphocytes % 22 % Monocytes % 8 % Eosinophils % 3 % Basophils % 1 % Neutrophils # 4.7 (1.3-7.7) k/uL Lymphocytes # 1.6 (1.0-4.8) k/uL Monocytes # 0.6 (0-1.0) k/uL Eosinophils # 0.2 (0-0.7) k/uL Basophils # 0.0 (0-0.2) k/uL Sodium 146 H (137-145) mmol/L Potassium 4.6 (3.5-5.1) mmol/L Chloride 106 (98-107) mmol/L Carbon Dioxide 24 (22-30) mmol/L Anion Gap 16 mmol/L BUN 30 H (9-20) mg/dL Creatinine 1.70 H (0.66-1.25) mg/dL Est GFR (CKD-EPI)AfAm 41 (>60 ml/min/1.73 sqM) Est GFR (CKD-EPI)NonAf 36 (>60 ml/min/1.73 sqM) Glucose 108 H (74-99) mg/dL Calcium 9.9 (8.4-10.2) mg/dL Phosphorus 3.7 (2.5-4.5) mg/dL Magnesium 2.0 (1.6-2.3) mg/dL Total Bilirubin 0.6 (0.2-1.3) mg/dL AST 29 (17-59) U/L ALT 19 L (21-72) U/L Alkaline Phosphatase 99 (38-126) U/L Total Creatine Kinase 126 (55-170) U/L CK-MB (CK-2) 3.4 H* (0.0-2.4) ng/mL CK-MB (CK-2) Rel Index 2.7 Troponin I <0.012 (0.000-0.034) ng/mL Total Protein 7.3 (6.3-8.2) g/dL Albumin 4.5 (3.5-5.0) g/dL - Radiology Data Radiology results: report reviewed (CT brain is negative for acute disease), image reviewed Disposition Clinical Impression: Hypertension Disposition: HOME SELF-CARE Condition: Good Instructions: Hypertension (ED) Is patient prescribed a controlled substance at d/c from ED?: No If prescribed controlled substance>3 days was MAPS reviewed?: No When asked, does pt state using other controlled substances?: No Referrals: Reyes Dela Cruz MD [Primary Care Provider] - 1-2 days
[2017-12-31 20:58] LABS: Basophils % (A) 1 %; Eosinophils # (A) 0.2 k/uL (0-0.7); Eosinophils % (A) 3 %; HCT 40.5 % (39.0-53.0); HGB 13.4 gm/dL (13.0-17.5); Lymphocytes # (A) 1.6 k/uL (1.0-4.8); Lymphocytes % (A) 22 %; MCH 31.1 pg (25.0-35.0); Mean Platelet Volume 8.6; Monocytes # (A) 0.6 k/uL (0-1.0); Monocytes % (A) 8 %; Neutrophils # (A) 4.7 k/uL (1.3-7.7); Neutrophils % (A) 65 %; Platelet Count 118 k/uL (150-450); RBC 4.31 m/uL (4.30-5.90); RDW 14.4 % (11.5-15.5); WBC 7.3 k/uL (3.8-10.6)
[2017-12-31 21:23] LABS: Creatine Kinase 126 U/L (55-170)
[2017-12-31 21:26] LABS: Albumin 4.5 g/dL (3.5-5.0); Calcium 9.9 mg/dL (8.4-10.2); Phosphorus 3.7 mg/dL (2.5-4.5); Potassium 4.6 mmol/L (3.5-5.1); Total Bilirubin 0.6 mg/dL (0.2-1.3); Total Protein 7.3 g/dL (6.3-8.2)
[2017-12-31 21:36] LABS: Troponin I <0.012 ng/mL (0.000-0.034)
[2017-12-31 21:40] LABS: Creatine Kinase MB 3.4 ng/mL (0.0-2.4)
--- NOTE | 2017-12-31 21:41 | CT ---
EXAMINATION: CT brain wo con DATE AND TIME: 12/31/2017 9:12 PM ORDERING PROVIDER: Guillermo Castillo DO CLINICAL INDICATION: weakness TECHNIQUE: Standard departmental protocol. DLP 776 mGy-cm. COMPARISON: 02/28/2017 DESCRIPTION: The calvarium is intact. There is no intracranial hemorrhage. There is no mass or mass e ffect. There is no definite new attenuation defect. Remainder of the intra-axial and extra-axial comp artment examination is unremarkable. The paranasal sinuses, middle ear cavities, and mastoid sinus ai r cells are clear. The orbits are intact. IMPRESSION: NO ACUTE PROCESS.
[2017-12-31 22:36] VITALS: BP 165/97; PULSE 65; RESP 18; TEMP 98
== END 2017-12-31 22:34 | disposition home or self-care (01) ==
LOC: EC 19:29
DX: I10 Essential (primary) hypertension (principal); I25.10 Atherosclerotic heart disease of native coronary artery without angina pectoris; E78.5 Hyperlipidemia, unspecified; I25.2 Old myocardial infarction; M10.9 Gout, unspecified; Z85.038 Personal history of other malignant neoplasm of large intestine; Z86.73 Personal history of transient ischemic attack (TIA), and cerebral infarction without residual deficits; Z95.1 Presence of aortocoronary bypass graft; Z95.0 Presence of cardiac pacemaker; Z95.818 Presence of other cardiac implants and grafts; Z96.651 Presence of right artificial knee joint; Z87.891 Personal history of nicotine dependence; Z79.82 Long term (current) use of aspirin; Z79.899 Other long term (current) drug therapy
CPT/HCPCS: 36415; 70450; 80053; 82550; 82553; 83735; 84100; 84484; 85025; 93005; 99284

== ENCOUNTER 2018-02-13 15:06 | Inpatient (IN) | payer MEDICARE, BC ==
[2018-02-13] MEDS ORDERED: SODIUM CHLORIDE 0.9% 500 ML IV STA (15:52)
--- NOTE | 2018-02-13 16:01 | ED ---
General Adult HPI - General Chief complaint: Neuro Symptoms/Deficit Stated complaint: left leg numbness Time Seen by Provider: 02/13/18 15:43 Source: patient, RN notes reviewed Mode of arrival: wheelchair Limitations: physical limitation - History of Present Illness Initial comments: This is a 87-year-old male presents emergency Department chief complaint of left leg numbness. Patient states that he had similar symptoms this in November 2016 in which she states that he was diagnosed with CVA. Patient states that symptoms started today after coming home from the doctor's office. Patient states it started when he got out of the vehicle. He states he has no weakness associated. Patient states that when he squeezes like he has normal sensation discuss that it's numb sleep feeling. Patient states that he has no current headache denies any dizziness, chest pain, shortness breath, nausea, vomiting. Patient states he is able drive himself the hospital. - Related Data Home Medications Medication Instructions Recorded Confirmed Allopurinol [Zyloprim] 100 mg PO DAILY 04/25/16 02/13/18 Aspirin EC [Ecotrin Low Dose] 162 mg PO HS 04/25/16 02/13/18 Atorvastatin [Lipitor] 20 mg PO HS 04/25/16 02/13/18 Fish Oil/Dha/Epa [Fish Oil 1,200 1 cap PO DAILY 04/25/16 02/13/18 mg Fish Oil] Latanoprost [Xalatan 0.005%] 1 drop BOTH EYES HS 04/25/16 02/13/18 Lutein 20 mg PO DAILY 04/25/16 02/13/18 Nitroglycerin Sl Tabs [Nitrostat] 0.4 mg SUBLINGUAL Q5M PRN 04/25/16 02/13/18 Vit C/E/Zn/Coppr/Lutein/Zeaxan 1 cap PO BID 04/25/16 02/13/18 [Preservision Areds 2 Softgel] Vitamin E 1,000 unit PO DAILY 04/25/16 02/13/18 Levothyroxine Sodium [Synthroid] 25 mcg PO HS 12/31/17 02/13/18 Midodrine HCl [ProAmatine] 5 mg PO TID 12/31/17 02/13/18 amLODIPine [Norvasc] 5 mg PO HS 02/13/18 02/13/18 Previous Rx's Medication Instructions Recorded Lisinopril 30 mg PO HS #0 03/01/17 Allergies Allergy/AdvReac Type Severity Reaction Status Date / Time No Known Allergies Allergy Verified 02/13/18 16:06 Review of Systems ROS Statement: Those systems with pertinent positive or pertinent negative responses have been documented in the HPI. ROS Other: All systems not noted in ROS Statement are negative. Past Medical History Past Medical History: Coronary Artery Disease (CAD), Cancer, Chest Pain / Angina , CVA/TIA, Hyperlipidemia, Hypertension, Myocardial Infarction ([place]), Osteoarthritis (OA), Prostate Disorder, Renal Disease, Syncope Additional Past Medical History / Comment(s): colon polyps-colon ca , gout, left side stroke Last Myocardial Infarction Date:: 2007 or 2008 History of Any Multi-Drug Resistant Organisms: None Reported Past Surgical History: Appendectomy, Back Surgery, Bowel Resection, Coronary Bypass/CABG, Heart Catheterization, Joint Replacement, Pacemaker Additional Past Surgical History / Comment(s): Three-vessel CABG in 1987, rt knee arthroscopy, right knee replacement, turp. maco cataracts, colonoscopy last one 10 years ago without any abnormalities, maco ing hernia repair, precancerous lesions on scalp lasered off. Past Anesthesia/Blood Transfusion Reactions: No Reported Reaction Type of Cardiac Device: Permanent Pacemaker Device Placement Date:: 05-24-16 Past Psychological History: No Psychological Hx Reported Smoking Status: Former smoker Past Alcohol Use History: None Reported Past Drug Use History: None Reported - Past Family History Mother Family Medical History: Cancer Additional Family Medical History / Comment(s): Mother at age 76 from stomach cancer Father Family Medical History: Cancer Additional Family Medical History / Comment(s): Father at age 76 from colon cancer Brother(s) Family Medical History: Cancer Additional Family Medical History / Comment(s): One brother at age 42 from brain cancer. One brother had myocardial infarction at age 29. Patient had a total of 4 brothers. Patient has 4 sisters with no major medical problems. Patient has 4 children, 2 boys and 2 girls. One son from a hunting accident. General Exam Limitations: physical limitation General appearance: alert, in no apparent distress Head exam: Present: atraumatic, normocephalic, normal inspection Eye exam: Present: normal appearance, PERRL, EOMI. Absent: scleral icterus, conjunctival injection, periorbital swelling ENT exam: Present: normal exam, normal oropharynx, mucous membranes moist Neck exam: Present: normal inspection, full ROM. Absent: tenderness, meningismus, lymphadenopathy Respiratory exam: Present: normal lung sounds bilaterally. Absent: respiratory distress, wheezes, rales, rhonchi, stridor Cardiovascular Exam: Present: regular rate, normal rhythm, normal heart sounds. Absent: systolic murmur, diastolic murmur, rubs, gallop, clicks GI/Abdominal exam: Present: soft, normal bowel sounds. Absent: distended, tenderness, guarding, rebound, rigid Extremities exam: Present: other (Lower and upper extremity strength equal bilaterally neurovascular) Neurological exam: Present: alert, CN II-XII intact, reflexes normal, other ( Finger to nose intact bilaterally without shooting). Absent: oriented X3 ( Patient not orientated to date), motor sensory deficit Expanded Patient oriented to: Present: person, place. Absent: time Speech: Present: fluid speech Cranial nerves: EOM's Intact: Normal, Tongue Deviation: Normal, Facial Sensation : Normal, Facial Palsy with Forehead Movement: Normal, Facial Palsy without Forehead Movement: Normal Cerebellar function: Finger to Nose: Normal Upper motor neuron: Pronator Drift: Normal Motor strength exam: RUE: 5, LUE: 5, RLE: 5, LLE: 5 Eye Response: (4) open spontaneously Motor Response: (6) obeys commands Verbal Response: (5) oriented Georges Total: 15 (NIH 3 by nurse scale) Skin exam: Present: warm, dry, intact, normal color. Absent: rash Course Vital Signs 02/13/18 02/13/18 02/13/18 15:21 15:45 17:08 Temperature 97.4 F L 97.5 F L Pulse Rate 78 83 86 Respiratory 16 18 18 Rate Blood Pressure 193/93 167/82 183/98 O2 Sat by Pulse 97 95 96 Oximetry 02/13/18 18:08 Temperature Pulse Rate 90 Respiratory 16 Rate Blood Pressure 183/98 O2 Sat by Pulse 96 Oximetry EKG Findings - EKG Comments: EKG Findings:: EKG performed at 16:16 sinus rhythm with first-degree block right bundle, rate of 83 W[place] interval 228 QRS 144 [id number] Medical Decision Making - Medical Decision Making 87-year-old male presented from it for left leg paresthesias and was found to have some confusion. Patient is alert and orientated times to his unable to identify car month and year. I did personally talked to his son who states that he is not normally confused on a daily basis. Patient was diagnosed with TIA/CVA November 2016 with some her symptoms. Patient does state the symptoms have improved at this time. Patient was not a TPA candidate due to low NIH and symptoms. Patient states discussed with Dr. Borden in which the patient will be admitted. - Lab Data Result diagrams: 02/13/18 16:30 02/13/18 16:30 Lab Results 02/13/18 02/13/18 02/13/18 Range/Units 16:30 16:30 16:30 WBC 5.9 (3.8-10.6) k/uL RBC 4.18 L (4.30-5.90) m/uL Hgb 13.8 (13.0-17.5) gm/dL Hct 39.8 (39.0-53.0) % MCV 95.3 (80.0-100.0) fL MCH 33.0 (25.0-35.0) pg MCHC 34.6 (31.0-37.0) g/dL RDW 13.9 (11.5-15.5) % Plt Count 159 (150-450) k/uL Neutrophils % 63 % Lymphocytes % 25 % Monocytes % 8 % Eosinophils % 1 % Basophils % 1 % Neutrophils # 3.8 (1.3-7.7) k/uL Lymphocytes # 1.5 (1.0-4.8) k/uL Monocytes # 0.5 (0-1.0) k/uL Eosinophils # 0.1 (0-0.7) k/uL Basophils # 0.0 (0-0.2) k/uL PT (9.0-12.0) sec INR (<1.2) APTT (22.0-30.0) sec Sodium 144 (137-145) mmol/L Potassium 4.7 (3.5-5.1) mmol/L Chloride 106 (98-107) mmol/L Carbon Dioxide 22 (22-30) mmol/L Anion Gap 16 mmol/L BUN 30 H (9-20) mg/dL Creatinine 1.55 H (0.66-1.25) mg/dL Est GFR (CKD-EPI)AfAm 46 (>60 ml/min/1.73 sqM) Est GFR (CKD-EPI)NonAf 40 (>60 ml/min/1.73 sqM) Glucose 89 (74-99) mg/dL Calcium 9.7 (8.4-10.2) mg/dL Total Bilirubin 0.8 (0.2-1.3) mg/dL AST 27 (17-59) U/L ALT 31 (21-72) U/L Alkaline Phosphatase 84 (38-126) U/L Total Creatine Kinase 126 (55-170) U/L CK-MB (CK-2) 3.0 H* (0.0-2.4) ng/mL CK-MB (CK-2) Rel Index 2.4 Troponin I <0.012 (0.000-0.034) ng/mL Total Protein 7.0 (6.3-8.2) g/dL Albumin 4.6 (3.5-5.0) g/dL Urine Color Urine Appearance (Clear) Urine pH (5.0-8.0) Ur Specific [place] (1.001-1.035) Urine Protein (Negative) Urine Glucose (UA) (Negative) Urine Ketones (Negative) Urine Blood (Negative) Urine Nitrite (Negative) Urine Bilirubin (Negative) Urine Urobilinogen (<2.0) mg/dL Ur Leukocyte Esterase (Negative) 02/13/18 02/13/18 Range/Units 16:30 18:19 WBC (3.8-10.6) k/uL RBC (4.30-5.90) m/uL Hgb (13.0-17.5) gm/dL Hct (39.0-53.0) % MCV (80.0-100.0) fL MCH (25.0-35.0) pg MCHC (31.0-37.0) g/dL RDW (11.5-15.5) % Plt Count (150-450) k/uL Neutrophils % % Lymphocytes % % Monocytes % % Eosinophils % % Basophils % % Neutrophils # (1.3-7.7) k/uL Lymphocytes # (1.0-4.8) k/uL Monocytes # (0-1.0) k/uL Eosinophils # (0-0.7) k/uL Basophils # (0-0.2) k/uL PT 10.6 (9.0-12.0) sec INR 1.1 (<1.2) APTT 26.2 (22.0-30.0) sec Sodium (137-145) mmol/L Potassium (3.5-5.1) mmol/L Chloride (98-107) mmol/L Carbon Dioxide (22-30) mmol/L Anion Gap mmol/L BUN (9-20) mg/dL Creatinine (0.66-1.25) mg/dL Est GFR (CKD-EPI)AfAm (>60 ml/min/1.73 sqM) Est GFR (CKD-EPI)NonAf (>60 ml/min/1.73 sqM) Glucose (74-99) mg/dL Calcium (8.4-10.2) mg/dL Total Bilirubin (0.2-1.3) mg/dL AST (17-59) U/L ALT (21-72) U/L Alkaline Phosphatase (38-126) U/L Total Creatine Kinase (55-170) U/L CK-MB (CK-2) (0.0-2.4) ng/mL CK-MB (CK-2) Rel Index Troponin I (0.000-0.034) ng/mL Total Protein (6.3-8.2) g/dL Albumin (3.5-5.0) g/dL Urine Color Light Yellow Urine Appearance Clear (Clear) Urine pH 6.5 (5.0-8.0) Ur Specific [place] 1.003 (1.001-1.035) Urine Protein Negative (Negative) Urine Glucose (UA) Negative (Negative) Urine Ketones Negative (Negative) Urine Blood Negative (Negative) Urine Nitrite Negative (Negative) Urine Bilirubin Negative (Negative) Urine Urobilinogen <2.0 (<2.0) mg/dL Ur Leukocyte Esterase Negative (Negative) Disposition Clinical Impression: TIA (transient ischemic attack), Left leg paresthesias, Confusion Disposition: ADMITTED IP TO THIS [facility] Condition: Stable Referrals: Reyes Dela Cruz MD [Primary Care Provider] - 1-2 days
[2018-02-13 16:45] LABS: Basophils % (A) 1 %; Eosinophils # (A) 0.1 k/uL (0-0.7); Eosinophils % (A) 1 %; HCT 39.8 % (39.0-53.0); HGB 13.8 gm/dL (13.0-17.5); Lymphocytes # (A) 1.5 k/uL (1.0-4.8); Lymphocytes % (A) 25 %; MCHC 34.6 g/dL (31.0-37.0); MCV 95.3 fL (80.0-100.0); Mean Platelet Volume 6.9; Monocytes # (A) 0.5 k/uL (0-1.0); Monocytes % (A) 8 %; Neutrophils # (A) 3.8 k/uL (1.3-7.7); Neutrophils % (A) 63 %; Platelet Count 159 k/uL (150-450); RBC 4.18 m/uL (4.30-5.90); RDW 13.9 % (11.5-15.5); WBC 5.9 k/uL (3.8-10.6)
[2018-02-13 16:53] LABS: INR 1.1 (<1.2); Partial Thromboplastin Time 26.2 sec (22.0-30.0); Prothrombin Time 10.6 sec (9.0-12.0)
--- NOTE | 2018-02-13 16:55 | CT ---
EXAMINATION TYPE: CT brain wo con DATE OF EXAM: 02/13/2018 COMPARISON: 12/31/2017 HISTORY: Left leg numbness. CT DLP: 950.[address] of the brain was performed. The ventricles, basal cisterns and sulci overlying the cerebral convexities demonstrate mild enlargem ent. There is no evidence for intracranial hemorrhage or sulcal effacement. There is decreased attenuation about the periventricular white matter and deep white matter of both c erebral hemispheres, compatible with chronic small vessel ischemia. Differential diagnosis does inclu de demyelination. No mass effects are seen.No midline shift. Osseous calvarium is intact. If symptoms persist consider MRI. IMPRESSION: 1. Age related atrophic and chronic small vessel ischemic change without acute intracranial process s een at this time.
[2018-02-13 17:08] LABS: Albumin 4.6 g/dL (3.5-5.0); Calcium 9.7 mg/dL (8.4-10.2); Creatine Kinase 126 U/L (55-170); Potassium 4.7 mmol/L (3.5-5.1); Total Bilirubin 0.8 mg/dL (0.2-1.3)
--- NOTE | 2018-02-13 17:14 | XR ---
EXAMINATION TYPE: XR lumbosacral spine min 4V DATE OF EXAM: 02/13/2018 COMPARISON: NONE HISTORY: Leg numbness TECHNIQUE: Five-view lumbar spine FINDINGS: Facet degenerative changes are present. There is diffuse loss of disc height throughout the lumbar spine. Vacuum disc phenomenon is noted at L2-L3. No spondylolytic defects are evident. There 5 lumbar-type vertebral bodies. The pedicles are intact. Alignment appears normal. Vertebral rosario dy heights are preserved. IMPRESSION: 1. Degenerative disc changes and facet degenerative changes lumbar spine. 2. No acute osseous abnormality.
--- NOTE | 2018-02-13 17:15 | XR ---
EXAMINATION TYPE: XR chest 2V DATE OF EXAM: 02/13/2018 COMPARISON: 02/28/2017 INDICATION: Altered mental status, leg numbness TECHNIQUE: Frontal and lateral views of the chest are obtained. FINDINGS: The heart size is normal. The pulmonary vasculature is normal. The lungs are clear. Pacemaker overlies left chest. Sternotomy wires are present from previous CABG. Findings appear stable from the comparison. IMPRESSION: 1. No acute pulmonary process. 2. No significant interval change.
[2018-02-13 17:20] LABS: Troponin I <0.012 ng/mL (0.000-0.034)
[2018-02-13 18:32] LABS: Appearance,Urine Clear (Clear); Bilirubin,Urine Negative (Negative); Blood,Urine Negative (Negative); Color,Urine Light Yellow; Glucose,Urine (UA) Negative (Negative); Ketones,Urine Negative (Negative); Leukocyte Esterase,Urine Negative (Negative); Nitrite,Urine Negative (Negative); PH, Urine 6.5 (5.0-8.0); Protein,Urine Negative (Negative); Specific Gravity,Urine 1.003 (1.001-1.035); Urobilinogen,Urine <2.0 mg/dL (<2.0)
[2018-02-13] MEDS ORDERED: NITROGLYCERIN SL TABS 0.4 MG TAB SUBLINGUAL PRN (19:08)
[2018-02-13] MEDS ORDERED: amLODIPine 5 MG TAB PO STA (19:08)
[2018-02-13] MEDS: VIT A,C & E-LUTEIN-MINERALS 1 EACH TAB PO SCH (20:13)
[2018-02-13] MEDS ORDERED: LEVOTHYROXINE 25 MCG TAB PO SCH (21:00)
[2018-02-13] MEDS ORDERED: ASPIRIN 81 MG PO SCH (21:00)
[2018-02-13] MEDS ORDERED: amLODIPine 5 MG TAB PO SCH (21:00)
[2018-02-13] MEDS ORDERED: ATORVASTATIN 20 MG TAB PO SCH (21:00)
[2018-02-13] MEDS ORDERED: LISINOPRIL 10 MG TAB PO SCH (21:00)
[2018-02-13] MEDS ORDERED: LATANOPROST 0.005% OPHTH DROPS 2.5 ML BTL BOTH EYES SCH (21:00)
[2018-02-14] MEDS: MIDODRINE 5 MG TAB PO SCH ×2 (06:18→11:34)
[2018-02-14 06:27] LABS: Cholesterol 105 mg/dL (<200); HDL Cholesterol 34 mg/dL (40-60); LDL Cholesterol,Calculated 45 mg/dL (0-99); Triglycerides 131 mg/dL (<150)
[2018-02-14] MEDS: VIT A,C & E-LUTEIN-MINERALS 1 EACH TAB PO SCH (08:07)
[2018-02-14] MEDS ORDERED: FISH OIL 1200MG PO SCH (09:00)
[2018-02-14] MEDS ORDERED: LUTEIN 20MG PO SCH (09:00)
[2018-02-14] MEDS ORDERED: CHOLECALCIFEROL 400 UNIT TAB PO SCH (09:00)
[2018-02-14] MEDS ORDERED: ALLOPURINOL 100 MG TAB PO SCH (09:00)
[2018-02-14 09:41] VITALS: BMI 23.2
[2018-02-14 10:25] VITALS: RESP 18
[2018-02-14 11:46] VITALS: BP 152/92; PULSE 88; TEMP 97.2
--- NOTE | 2018-02-14 14:19 | P.HPIM ---
History of Present Illness H&P Date: 02/14/18 Chief Complaint: Left leg numbness HISTORY AND PHYSICAL AND DISCHARGE SUMMARY: This is an 87-year-old male . His primary care physician is Dr. Dela Cruz with a past medical history of myocardial infarction with CAD status post 3 vessel coronary artery bypass in 1987 with heart catheterization 2006 revealed patent NICOLAS to LAD, vein graft to OM and stenosis of vein graft to the RCA, history of benign prostatic hypertrophy, and history of atrial flutter, hypothyroidism, hypertension, hyperlipidemia. Dr. Carmona is his asset manager. Patient had a previous admission and February 2017 which time he had orthostatic hypotension. He also gives history of having a CVA in November 2017 while in [place] with no residual. At that time he did have a carotid ultrasound done an echocardiogram which she believes were normal. He was increased to 2 baby aspirins. Patient was just in the office yesterday due to see Dr. Dela Cruz for a regular checkup and did not have any problems while there. Once he got home he developed left-sided numbness that went down his leg to the bottom of his foot. He called the office and he was told to come into the hospital to be checked. He denies any weakness. There was no numbness to his arms or face. He denies any slurred speech. He states he has had problems with his low back and sometimes has pain in his hips and was planning to go to a chiropractor. He denies any recent fall or twisting motion. The numbness to the left leg is completely gone. Patient came into [facility] emergency center for evaluation. Initial blood pressure was 193/93. EKG was a sinus rhythm with a first-degree block. BUN was 30 creatinine 1.55. CBC all her joints are within normal limits , liver function tests within normal limits. Troponin 0.012. CT of the chest showed age-related atrophy and chronic small vessel ischemic change without acute intracranial process. Lumbar spine x-ray showed degenerative disc changes and facet degenerative changes of the lumbar spine. No acute osseous abnormality. Chest x-ray showed no acute pulmonary process. No significant interval change. Echocardiogram from February 2017 revealed EF of 50-55%, mild aortic regurgitation, mild mitral regurgitation, mild tricuspid regurgitation, aortic root moderately dilated. Review of Systems All systems: negative Constitutional: Denies chills, Denies fever Eyes: denies blurred vision, denies pain Ears, nose, mouth and throat: Denies headache, Denies sore throat Cardiovascular: Denies chest pain, Denies shortness of breath Respiratory: Denies cough Gastrointestinal: Denies abdominal pain, Denies diarrhea, Denies nausea, Denies vomiting Musculoskeletal: Reports low back pain, Denies myalgias Integumentary: Denies pruritus, Denies rash Neurological: Denies numbness, Denies weakness Psychiatric: Denies anxiety, Denies depression Endocrine: Denies fatigue, Denies weight change Past Medical History Past Medical History: Coronary Artery Disease (CAD), Cancer, Chest Pain / Angina , CVA/TIA, Hyperlipidemia, Hypertension, Myocardial Infarction ([place]), Osteoarthritis (OA), Prostate Disorder, Renal Disease, Syncope, Thyroid Disorder Additional Past Medical History / Comment(s): colon polyps-colon ca , gout, left side stroke Last Myocardial Infarction Date:: 2007 or 2008 History of Any Multi-Drug Resistant Organisms: None Reported Past Surgical History: Appendectomy, Back Surgery, Bowel Resection, Coronary Bypass/CABG, Heart Catheterization, Joint Replacement, Pacemaker Additional Past Surgical History / Comment(s): Three-vessel CABG in 1987, rt knee arthroscopy, right knee replacement, turp. maco cataracts, colonoscopy last one 10 years ago without any abnormalities, maco ing hernia repair, precancerous lesions on scalp lasered off. Past Anesthesia/Blood Transfusion Reactions: No Reported Reaction Type of Cardiac Device: Permanent Pacemaker Device Placement Date:: 05-24-16 Past Psychological History: No Psychological Hx Reported Additional Psychological History / Comment(s): PT IS BUT HIS L[facility]ES IN [facility].PT LIVES ALONE IN SINGLE LEVEL HOME THAT HAS 4 FRONT STEPS. PT IS INDEPENDANT-NO OUTSIDE SERVICES.DOES HAVE A WALKER IF NEEDED. NO SERVICE IN BACKGROUND. PT IS A RETIRED SURGERY NURSE. Smoking Status: Former smoker Past Alcohol Use History: None Reported Additional Past Alcohol Use History / Comment(s): Patient smoked one pack per day for 40 years and quit in 1979. No marijuana or street drug use. He drinks 1 -MAYBE2 beers per day. Past Drug Use History: None Reported - Past Family History Mother Family Medical History: Cancer Additional Family Medical History / Comment(s): Mother at age 76 from stomach cancer Father Family Medical History: Cancer Additional Family Medical History / Comment(s): Father at age 76 from colon cancer Brother(s) Family Medical History: Cancer Additional Family Medical History / Comment(s): One brother at age 42 from brain cancer. One brother had myocardial infarction at age 29. Patient had a total of 4 brothers. Patient has 4 sisters with no major medical problems. Patient has 4 children, 2 boys and 2 girls. One son from a hunting accident. Medications and Allergies Home Medications Medication Instructions Recorded Confirmed Type Allopurinol [Zyloprim] 100 mg PO DAILY 04/25/16 02/13/18 History Atorvastatin [Lipitor] 20 mg PO HS 04/25/16 02/13/18 History Fish Oil/Dha/Epa [Fish Oil 1,200 1 cap PO DAILY 04/25/16 02/13/18 History mg Fish Oil] Latanoprost [Xalatan 0.005%] 1 drop BOTH EYES HS 04/25/16 02/13/18 History Lutein 20 mg PO DAILY 04/25/16 02/13/18 History Nitroglycerin Sl Tabs [Nitrostat] 0.4 mg SUBLINGUAL Q5M PRN 04/25/16 02/13/18 History Vit C/E/Zn/Coppr/Lutein/Zeaxan 1 cap PO BID 04/25/16 02/13/18 History [Preservision Areds 2 Softgel] Vitamin E 1,000 unit PO DAILY 04/25/16 02/13/18 History Lisinopril 30 mg PO HS #0 03/01/17 02/13/18 Rx Levothyroxine Sodium [Synthroid] 25 mcg PO HS 12/31/17 02/13/18 History Midodrine HCl [ProAmatine] 5 mg PO TID 12/31/17 02/13/18 History amLODIPine [Norvasc] 5 mg PO HS 02/13/18 02/13/18 History Aspirin 325 mg PO DAILY #30 tab 02/14/18 Rx Allergies Allergy/AdvReac Type Severity Reaction Status Date / Time No Known Allergies Allergy Verified 02/13/18 16:06 Physical Exam Vitals: Vital Signs Temp Pulse Pulse Resp BP BP BP 02/14/18 04:00 98.1 F 87 16 126/86 02/13/18 23:44 97.1 F L 99 16 122/90 05/30/18 20:00 97.2 F L 97 16 96/73 165/108 02/13/18 19:51 98 F 61 18 166/81 02/13/18 19:08 97.5 F L 93 18 188/98 02/13/18 18:08 90 16 183/98 02/13/18 17:08 86 18 183/98 02/13/18 15:45 97.5 F L 83 18 167/82 02/13/18 15:21 97.4 F L 78 16 193/93 Pulse Ox 02/14/18 04:00 95 02/13/18 23:44 94 L 02/13/18 20:00 96 02/13/18 19:51 98 02/13/18 19:08 96 02/13/18 18:08 96 02/13/18 17:08 96 02/13/18 15:45 95 02/13/18 15:21 97 Intake and Output 02/13/18 02/14/18 02/14/18 22:59 06:59 14:59 Other: Voiding Method Toilet Toilet # Voids 1 1 Weight 77.111 kg 77.6 kg General appearance: average body habitus, cooperative, no acute distress - EENT Eyes: Reports anicteric sclerae, Reports EOMI, Reports PERRLA, Reports dentition normal, Reports normal apperance, Denies abnormal pupil, Denies disc margins sharp, Denies edentulous, Denies fundus normal, Denies photophobia, Denies poor dentition, Denies ptosis, Denies scleral icterus ENT: Reports hearing grossly normal, Reports normal oropharynx, Denies hard of hearing, Denies NA/AT, Denies other, Denies pharyngeal erythema, Denies thrush, Denies tonsillar exudates, Denies tonsillar swelling - Neck Neck: Reports normal ROM, Denies lymphadenopathy, Denies other, Denies rigidity , Denies stridor, Denies thyromegaly Thyroid: bilateral: normal size - Respiratory Respiratory: bilateral: CTA, negative: diminished, dullness, rales, rhonchi, wheezing, prolonged expiration - Cardiovascular Rhythm: regular Heart sounds: normal: S1, S2 Abnormal Heart Sounds: Denies systolic murmur, Denies diastolic murmur, Denies rub, Denies S3 Gallop, Denies S4 Gallop, Denies click, Denies other - Gastrointestinal General gastrointestinal: Reports normal bowel sounds, Reports soft, Denies absent bowel sounds, Denies decreased bowel sounds, Denies distended, Denies hepatomegaly, Denies hyperactive bowel sounds, Denies organomegaly, Denies rigid , Denies scaphoid, Denies splenomegaly, Denies tenderness, Denies umbilical hernia, Denies ventral hernia - Integumentary Integumentary: Reports normal, Reports normal turgor, Denies calor, Denies cellulitis, Denies cyanotic, Denies decreased turgor, Denies flushed, Denies jaundiced, Denies pale, Denies rash, Denies ulcer - Neurologic Neurologic: CNII-XII intact - Musculoskeletal Musculoskeletal: Reports gait normal, Reports strength equal bilaterally - Psychiatric Psychiatric: Reports A&O x's 3, Reports appropriate affect, Reports intact judgment & insight Results CBC & Chem 7: 02/13/18 16:30 02/13/18 16:30 Labs: Abnormal Lab Results - Last 24 Hours (Table) 02/13/18 02/13/18 02/13/18 Range/Units 16:30 16:30 16:30 RBC 4.18 L (4.30-5.90) m/uL BUN 30 H (9-20) mg/dL Creatinine 1.55 H (0.66-1.25) mg/dL CK-MB (CK-2) 3.0 H* (0.0-2.4) ng/mL HDL Cholesterol (40-60) mg/dL 02/14/18 Range/Units 03:50 RBC (4.30-5.90) m/uL BUN (9-20) mg/dL Creatinine (0.66-1.25) mg/dL CK-MB (CK-2) (0.0-2.4) ng/mL HDL Cholesterol 34 L (40-60) mg/dL Thrombosis Risk Factor Assmnt - DVT/VTE Prophylaxis DVT/VTE Prophylaxis: Pharmacologic Prophylaxis ordered - Choose All That Apply Any of the Below Risk Factors Present?: No Other Risk Factors: Yes Each Risk Factor Represents 3 Points: Age 75 years or older Thrombosis Risk Factor Assessment Total Risk Factor Score: 3 Thrombosis Risk Factor Assessment Level: Moderate Risk Assessment and Plan Plan: 1. Left leg numbness most likely coming from the lumbar spine area. The patient has ongoing problems, he may require CAT scan. Patient is unable to undergo MRI due to pacemaker. 2. History of atrial flutter Requiring permanent pacemaker implantation last 3. Hypertension. Continue Norvasc 5 mg daily, lisinopril 30 mg bedtime 4. Hyperlipidemia. Continue atorvastatin 20 g at bedtime 5. Gout, unspecified. Continue allopurinol 100 mg daily 6. Chronic kidney disease stage III. Stable 7. Coronary artery disease status post CABG. Continue aspirin 1626 mg daily, Lipitor daily. 8. Benign prostatic hypertrophy. 9. Hypothyroidism. Continue Synthroid 25 g daily. Discharge plan: Return home Impression and plan of care have been directed as dictated by the signing physician. Daisy Alcocer nurse practitioner acting as scribe for signing physician.
[2018-02-15] MEDS ORDERED: ASPIRIN 325 MG TAB PO SCH (09:00)
== END 2018-02-14 11:58 | disposition home or self-care (01) | DRG 552 ==
LOC: EC 15:06 → 6SEL 19:15
PROVIDERS: ADMIT Internal Medicine; ATTEND Internal Medicine
DX: M51.36 Other intervertebral disc degeneration, lumbar region (principal); I25.810 Atherosclerosis of coronary artery bypass graft(s) without angina pectoris; E03.9 Hypothyroidism, unspecified; E78.5 Hyperlipidemia, unspecified; I08.3 Combined rheumatic disorders of mitral, aortic and tricuspid valves; I12.9 Hypertensive chronic kidney disease with stage 1 through stage 4 chronic kidney disease, or unspecified chronic kidney disease; I25.2 Old myocardial infarction; M10.9 Gout, unspecified; N18.3 Chronic kidney disease, stage 3 (moderate); N40.0 Benign prostatic hyperplasia without lower urinary tract symptoms; M19.90 Unspecified osteoarthritis, unspecified site; Z79.82 Long term (current) use of aspirin; Z79.899 Other long term (current) drug therapy; Z79.890 Hormone replacement therapy; Z95.1 Presence of aortocoronary bypass graft; Z87.891 Personal history of nicotine dependence; Z86.73 Personal history of transient ischemic attack (TIA), and cerebral infarction without residual deficits; Z86.010 Personal history of colon polyps; Z85.038 Personal history of other malignant neoplasm of large intestine; Z95.0 Presence of cardiac pacemaker; Z96.651 Presence of right artificial knee joint; Z90.79 Acquired absence of other genital organ(s); Z98.42 Cataract extraction status, left eye; Z98.41 Cataract extraction status, right eye; Z96.1 Presence of intraocular lens; Z82.49 Family history of ischemic heart disease and other diseases of the circulatory system; Z80.0 Family history of malignant neoplasm of digestive organs; Z80.8 Family history of malignant neoplasm of other organs or systems
CPT/HCPCS: 36415; 70450; 71046; 72110; 80053; 80061; 81003; 82550; 82553; 84484; 85025; 85610; 85730; 93005; 94760; 96360; 99285

== ENCOUNTER 2018-06-01 11:25 | Emergency (ER) | payer MEDICARE, BC ==
[2018-06-01 11:32] VITALS: TEMP 97.5
[2018-06-01] MEDS ORDERED: SODIUM CHLORIDE 0.9% 1,000 ML IV STA (11:47)
[2018-06-01] MEDS ORDERED: METOCLOPRAMIDE 5 MG/ML 2 ML VIAL IVP STA (11:48)
[2018-06-01] MEDS ORDERED: MECLIZINE 12.5 MG TAB PO STA (11:48)
--- NOTE | 2018-06-01 11:53 | ED ---
General Adult HPI - General Chief complaint: Dizziness Stated complaint: Dizzy, Nausea Time Seen by Provider: 06/01/18 11:34 Source: patient, family, RN notes reviewed Mode of arrival: wheelchair Limitations: no limitations - History of Present Illness Initial comments: Patient is a pleasant 87-year-old male presenting to the emergency Department with complaints of dizziness. Onset of symptoms was this morning a couple hours prior to arrival. Patient suddenly felt dizzy described as a spinning type sensation. Patient did have associated nausea and did vomit 2 or 3 times. Patient sat down and symptoms improved after around 15 minutes. Patient did go to urgent care and became dizzy with standing up again. Patient denies any confusion. Family states patient may have been somewhat confused however this is because when asked what he was doing patient replied I don't know. Otherwise family denies noticing any confusion. Patient does have a history of dizziness however not this severe in the past. Patient denies any weakness. No isolated area of weakness. No chest pain. - Related Data Home Medications Medication Instructions Recorded Confirmed Allopurinol [Zyloprim] 100 mg PO DAILY 04/25/16 06/01/18 Atorvastatin [Lipitor] 20 mg PO HS 04/25/16 06/01/18 Fish Oil/Dha/Epa [Fish Oil 1,200 1 cap PO DAILY 04/25/16 06/01/18 mg Fish Oil] Latanoprost [Xalatan 0.005%] 1 drop BOTH EYES HS 04/25/16 06/01/18 Lutein 20 mg PO DAILY 04/25/16 06/01/18 Nitroglycerin Sl Tabs [Nitrostat] 0.4 mg SUBLINGUAL Q5M PRN 04/25/16 06/01/18 Vit C/E/Zn/Coppr/Lutein/Zeaxan 1 cap PO BID 04/25/16 06/01/18 [Preservision Areds 2 Softgel] Vitamin E 1,000 unit PO DAILY 04/25/16 06/01/18 amLODIPine [Norvasc] 5 mg PO HS 02/13/18 06/01/18 Aspirin EC [Ecotrin Low Dose] 162 mg PO HS 06/01/18 06/01/18 Previous Rx's Medication Instructions Recorded Lisinopril 30 mg PO HS #0 03/01/17 Allergies Allergy/AdvReac Type Severity Reaction Status Date / Time No Known Allergies Allergy Verified 06/01/18 12:37 Review of Systems ROS Statement: Those systems with pertinent positive or pertinent negative responses have been documented in the HPI. ROS Other: All systems not noted in ROS Statement are negative. Constitutional: Denies: fever Eyes: Denies: eye pain ENT: Denies: ear pain Respiratory: Denies: cough Cardiovascular: Denies: chest pain Endocrine: Denies: as per HPI Gastrointestinal: Denies: abdominal pain Genitourinary: Denies: dysuria Musculoskeletal: Denies: back pain Skin: Denies: rash Neurological: Reports: vertigo. Denies: headache, weakness Past Medical History Past Medical History: Coronary Artery Disease (CAD), Cancer, Chest Pain / Angina , CVA/TIA, Hyperlipidemia, Hypertension, Myocardial Infarction ([place]), Osteoarthritis (OA), Prostate Disorder, Renal Disease, Syncope, Thyroid Disorder Additional Past Medical History / Comment(s): colon polyps-colon ca , gout, left side stroke Last Myocardial Infarction Date:: 2007 or 2008 History of Any Multi-Drug Resistant Organisms: None Reported Past Surgical History: Appendectomy, Back Surgery, Bowel Resection, Coronary Bypass/CABG, Heart Catheterization, Joint Replacement, Pacemaker Additional Past Surgical History / Comment(s): Three-vessel CABG in 1987, rt knee arthroscopy, right knee replacement, turp. maco cataracts, colonoscopy last one 10 years ago without any abnormalities, maco ing hernia repair, precancerous lesions on scalp lasered off. Past Anesthesia/Blood Transfusion Reactions: No Reported Reaction Type of Cardiac Device: Permanent Pacemaker Device Placement Date:: 05-24-16 Past Psychological History: No Psychological Hx Reported Smoking Status: Former smoker Past Alcohol Use History: None Reported Past Drug Use History: None Reported - Past Family History Mother Family Medical History: Cancer Additional Family Medical History / Comment(s): Mother at age 76 from stomach cancer Father Family Medical History: Cancer Additional Family Medical History / Comment(s): Father at age 76 from colon cancer Brother(s) Family Medical History: Cancer Additional Family Medical History / Comment(s): One brother at age 42 from brain cancer. One brother had myocardial infarction at age 29. Patient had a total of 4 brothers. Patient has 4 sisters with no major medical problems. Patient has 4 children, 2 boys and 2 girls. One son from a hunting accident. General Exam Limitations: no limitations General appearance: alert, in no apparent distress Head exam: Present: atraumatic Eye exam: Present: normal appearance, PERRL, EOMI. Absent: nystagmus ENT exam: Present: normal oropharynx Neck exam: Present: normal inspection Respiratory exam: Present: normal lung sounds bilaterally Cardiovascular Exam: Present: regular rate, normal rhythm GI/Abdominal exam: Present: soft. Absent: tenderness Extremities exam: Present: normal inspection. Absent: pedal edema, calf tenderness Neurological exam: Present: alert, oriented X3, CN II-XII intact. Absent: motor sensory deficit Expanded Neurological exam: Present: protecting the airway Patient oriented to: Present: person, place, time Speech: Present: fluid speech Cranial nerves: EOM's Intact: Normal Cerebellar function: Finger to Nose: Normal Motor strength exam: RUE: 5, LUE: 5, RLE: 5, LLE: 5 Eye Response: (4) open spontaneously Motor Response: (6) obeys commands Verbal Response: (5) oriented Psychiatric exam: Present: normal affect, normal mood Skin exam: Present: normal color Course Vital Signs 06/01/18 06/01/18 06/01/18 11:29 13:31 13:51 Temperature 97.5 F L Pulse Rate 71 74 Respiratory 18 16 Rate Blood Pressure 144/83 136/86 Blood Pressure 143/85 [Right Arm Sitting] Blood Pressure 144/85 [Right Arm Standing] Blood Pressure 133/75 [Right Arm Supine] O2 Sat by Pulse 96 95 Oximetry EKG Findings - EKG Comments: EKG Findings:: Sinus rhythm at 79. SC 216. QRS 146. QT 438. QTC 502. Left axis. Right bundle branch block. No acute ST change. Medical Decision Making - Medical Decision Making Patient reevaluated and resting comfortably in bed. Symptoms have resolved. Patient was able to get up without any difficulty. Patient requests discharge home. Patient and family updated on results and need for close follow-up. - Lab Data Result diagrams: 06/01/18 12:13 06/01/18 12:13 Lab Results 06/01/18 06/01/18 06/01/18 Range/Units 12:13 12:13 12:13 WBC 8.0 (3.8-10.6) k/uL RBC 4.46 (4.30-5.90) m/uL Hgb 13.8 (13.0-17.5) gm/dL Hct 43.4 (39.0-53.0) % MCV 97.5 (80.0-100.0) fL MCH 31.0 (25.0-35.0) pg MCHC 31.8 (31.0-37.0) g/dL RDW 13.8 (11.5-15.5) % Plt Count 147 L (150-450) k/uL Neutrophils % 82 % Lymphocytes % 12 % Monocytes % 5 % Eosinophils % 1 % Basophils % 0 % Neutrophils # 6.5 (1.3-7.7) k/uL Lymphocytes # 0.9 L (1.0-4.8) k/uL Monocytes # 0.4 (0-1.0) k/uL Eosinophils # 0.1 (0-0.7) k/uL Basophils # 0.0 (0-0.2) k/uL PT (9.0-12.0) sec INR (<1.2) APTT (22.0-30.0) sec Sodium 141 (137-145) mmol/L Potassium 4.9 (3.5-5.1) mmol/L Chloride 107 (98-107) mmol/L Carbon Dioxide 20 L (22-30) mmol/L Anion Gap 14 mmol/L BUN 43 H (9-20) mg/dL Creatinine 1.69 H (0.66-1.25) mg/dL Est GFR (CKD-EPI)AfAm 42 (>60 ml/min/1.73 sqM) Est GFR (CKD-EPI)NonAf 36 (>60 ml/min/1.73 sqM) Glucose 113 H (74-99) mg/dL Calcium 9.6 (8.4-10.2) mg/dL Total Bilirubin 0.8 (0.2-1.3) mg/dL AST 34 (17-59) U/L ALT 29 (21-72) U/L Alkaline Phosphatase 94 (38-126) U/L Total Creatine Kinase 106 (55-170) U/L CK-MB (CK-2) 3.9 H (0.0-2.4) ng/mL CK-MB (CK-2) Rel Index 3.7 Troponin I 0.013 (0.000-0.034) ng/mL Total Protein 7.8 (6.3-8.2) g/dL Albumin 4.9 (3.5-5.0) g/dL 06/01/18 Range/Units 12:13 WBC (3.8-10.6) k/uL RBC (4.30-5.90) m/uL Hgb (13.0-17.5) gm/dL Hct (39.0-53.0) % MCV (80.0-100.0) fL MCH (25.0-35.0) pg MCHC (31.0-37.0) g/dL RDW (11.5-15.5) % Plt Count (150-450) k/uL Neutrophils % % Lymphocytes % % Monocytes % % Eosinophils % % Basophils % % Neutrophils # (1.3-7.7) k/uL Lymphocytes # (1.0-4.8) k/uL Monocytes # (0-1.0) k/uL Eosinophils # (0-0.7) k/uL Basophils # (0-0.2) k/uL PT 11.3 (9.0-12.0) sec INR 1.2 H (<1.2) APTT 25.0 (22.0-30.0) sec Sodium (137-145) mmol/L Potassium (3.5-5.1) mmol/L Chloride (98-107) mmol/L Carbon Dioxide (22-30) mmol/L Anion Gap mmol/L BUN (9-20) mg/dL Creatinine (0.66-1.25) mg/dL Est GFR (CKD-EPI)AfAm (>60 ml/min/1.73 sqM) Est GFR (CKD-EPI)NonAf (>60 ml/min/1.73 sqM) Glucose (74-99) mg/dL Calcium (8.4-10.2) mg/dL Total Bilirubin (0.2-1.3) mg/dL AST (17-59) U/L ALT (21-72) U/L Alkaline Phosphatase (38-126) U/L Total Creatine Kinase (55-170) U/L CK-MB (CK-2) (0.0-2.4) ng/mL CK-MB (CK-2) Rel Index Troponin I (0.000-0.034) ng/mL Total Protein (6.3-8.2) g/dL Albumin (3.5-5.0) g/dL - Radiology Data Radiology results: report reviewed (Computed tomography scan of the brain reveals no acute intercranial abnormality.), image reviewed (Chest x-ray shows borderline cardiomegaly.) Disposition Clinical Impression: Dizziness Disposition: HOME SELF-CARE Condition: Stable Instructions: Dizziness (ED) Additional Instructions: Please follow-up with Dr. Dela Cruz in the beginning of the week. Return for confusion, weakness, vomiting, increased dizziness, worsening or changing symptoms or other concerns. [id number] Antivert if needed. Is patient prescribed a controlled substance at d/c from ED?: No Referrals: Reyes Dela Cruz MD [Primary Care Provider] - 1-2 days Time of Disposition: 14:02
[2018-06-01 12:26] LABS: Basophils % (A) 0 %; Eosinophils # (A) 0.1 k/uL (0-0.7); Eosinophils % (A) 1 %; HCT 43.4 % (39.0-53.0); HGB 13.8 gm/dL (13.0-17.5); Lymphocytes # (A) 0.9 k/uL (1.0-4.8); Lymphocytes % (A) 12 %; MCHC 31.8 g/dL (31.0-37.0); MCV 97.5 fL (80.0-100.0); Monocytes # (A) 0.4 k/uL (0-1.0); Monocytes % (A) 5 %; Neutrophils # (A) 6.5 k/uL (1.3-7.7); Neutrophils % (A) 82 %; Platelet Count 147 k/uL (150-450); RBC 4.46 m/uL (4.30-5.90); RDW 13.8 % (11.5-15.5)
[2018-06-01 12:36] LABS: INR 1.2 (<1.2)
[2018-06-01 12:37] LABS: Albumin 4.9 g/dL (3.5-5.0); Calcium 9.6 mg/dL (8.4-10.2); Potassium 4.9 mmol/L (3.5-5.1); Prothrombin Time 11.3 sec (9.0-12.0); Total Bilirubin 0.8 mg/dL (0.2-1.3); Total Protein 7.8 g/dL (6.3-8.2)
--- NOTE | 2018-06-01 13:00 | CT ---
EXAMINATION TYPE: CT brain wo con DATE OF EXAM: 06/01/2018 COMPARISON: Previous study dated 02/13/2018. HISTORY: dizziness CT DLP: 1121 mGycm Automated exposure control for dose reduction was used. FINDINGS: There are generalized changes of sulcal prominence and ventriculomegaly, compatible with atrophic [place] nge. There is diffuse periventricular white matter lucency, compatible chronic white matter ischemic change. There is some physiologic calcification of the basal ganglia. There is vascular calcification . There is no acute focal lesion, mass effect or midline shift. I do not see evidence of intracranial blood. Visualized portions of the paranasal sinuses and mastoids are clear. The bony calvarium is intact. IMPRESSION: 1. NO ACUTE INTRACRANIAL ABNORMALITY. 2. MILD DEGENERATIVE CHANGE.
--- NOTE | 2018-06-01 13:01 | XR ---
EXAMINATION TYPE: XR chest 2V DATE OF EXAM: 06/01/2018 HISTORY: Vertigo. REFERENCE: Previous study dated 02/13/2018. FINDINGS: Is a bipolar pacemaker place on the left. The lungs are clear. Pleural spaces are clear. Heart size is upper limits of normal. IMPRESSION: BORDERLINE CARDIOMEGALY.
[2018-06-01 13:15] LABS: Creatine Kinase MB 3.9 ng/mL (0.0-2.4); Troponin I 0.013 ng/mL (0.000-0.034)
[2018-06-01 13:31] VITALS: PULSE 74; RESP 16
[2018-06-01 13:54] VITALS: BP 133/75
== END 2018-06-01 14:27 | disposition home or self-care (01) ==
LOC: EC 11:25
DX: R42 Dizziness and giddiness (principal); R11.2 Nausea with vomiting, unspecified; I25.119 Atherosclerotic heart disease of native coronary artery with unspecified angina pectoris; E78.5 Hyperlipidemia, unspecified; I25.2 Old myocardial infarction; I10 Essential (primary) hypertension; Z79.82 Long term (current) use of aspirin; Z79.899 Other long term (current) drug therapy; Z87.891 Personal history of nicotine dependence; Z86.73 Personal history of transient ischemic attack (TIA), and cerebral infarction without residual deficits; Z85.038 Personal history of other malignant neoplasm of large intestine; Z95.1 Presence of aortocoronary bypass graft; Z95.0 Presence of cardiac pacemaker; Z96.651 Presence of right artificial knee joint
CPT/HCPCS: 36415; 93005; 80053; 82550; 82553; 84484; 85025; 85610; 85730; 71046; 70450; 99284; 96374; 96361 ×2; J2765

== ENCOUNTER → 2019-05-14 | Outpatient (CLI) | payer MEDICARE, BC ==
[2019-05-14 17:54] LABS: Basophils % (A) 0 %; Eosinophils % (A) 0 %; HCT 41.6 % (39.0-53.0); HGB 13.5 gm/dL (13.0-17.5); Lymphocytes # (A) 1.2 k/uL (1.0-4.8); Lymphocytes % (A) 16 %; MCH 32.4 pg (25.0-35.0); MCHC 32.5 g/dL (31.0-37.0); MCV 99.6 fL (80.0-100.0); Mean Platelet Volume 7.3; Monocytes # (A) 0.5 k/uL (0-1.0); Monocytes % (A) 7 %; Neutrophils # (A) 5.4 k/uL (1.3-7.7); Neutrophils % (A) 74 %; Platelet Count 173 k/uL (150-450); RBC 4.17 m/uL (4.30-5.90); RDW 13.8 % (11.5-15.5); WBC 7.3 k/uL (3.8-10.6)
[2019-05-14 23:17] LABS: African American GFR (CKD) 35.7 (60.0-200.0); Albumin 4.9 g/dL (3.80-4.90); Albumin/Globulin Ratio 2.33 (1.60-3.17); Anion Gap 10.8 mmol/L (4.00-12.00); BUN/Creat Ratio 20.53 Ratio (12.00-20.00); Carbon Dioxide 24.2 mmol/L (21.6-31.8); Globulin 2.1 g/dL (1.6-3.3); Potassium 5.7 mmol/L (3.5-5.5); Total Bilirubin 0.6 mg/dL (0.3-1.2)
== END | disposition home or self-care (01) ==
LOC: LABWHC1 17:11
PROVIDERS: ATTEND Nurse Practitioner Adult Health
DX: I12.9 Hypertensive chronic kidney disease with stage 1 through stage 4 chronic kidney disease, or unspecified chronic kidney disease (principal); N18.9 Chronic kidney disease, unspecified; R55 Syncope and collapse
CPT/HCPCS: 36415; 80053; 85025

== ENCOUNTER 2020-02-26 10:28 | Emergency (ER) | payer MEDICARE, BC ==
[2020-02-26 10:34] VITALS: BP 136/85; RESP 18
--- NOTE | 2020-02-26 10:55 | ED ---
Male Urogenital HPI <Nicholas Talbot - Last Filed: 02/26/20 13:14> - General Source: patient Mode of arrival: wheelchair Limitations: no limitations <Asael Henao - Last Filed: 02/26/20 20:31> - General Chief complaint: Urogenital Stated complaint: hematuria Time Seen by Provider: 02/26/20 10:34 - History of Present Illness Initial comments: Patient is an 89-year-old male presenting to emergency Department with chief complaint of blood in the urine. Patient reports prior to going to bed last night, he noticed gross hematuria without any other symptoms. States he woke up this morning he continued to have hematuria. Denies any dysuria, increased frequency or urgency. Patient states this occurred several years back but no exact cause was determined. Patient denies any obstructive urinary symptoms. Denies any abdominal pain, back pain, testicular pain or swelling. Denies any penile discharge. Patient denies any renal issues. States she otherwise stays well-hydrated. Denies nausea vomiting diarrhea. (Asael Henao) - Related Data Home Medications Medication Instructions Recorded Confirmed Allopurinol [Zyloprim] 100 mg PO DAILY 04/25/16 02/26/20 Atorvastatin [Lipitor] 20 mg PO DAILY 04/25/16 02/26/20 Nitroglycerin Sl Tabs [Nitrostat] 0.4 mg SUBLINGUAL Q5M PRN 04/25/16 02/26/20 Aspirin 325 mg PO DAILY 02/26/20 02/26/20 Lisinopril 20 mg PO BID 02/26/20 02/26/20 amLODIPine [Norvasc] 2.5 mg PO DAILY 02/26/20 02/26/20 Previous Rx's Medication Instructions Recorded Cephalexin [Keflex] 500 mg PO Q6HR #40 cap 02/26/20 Allergies Allergy/AdvReac Type Severity Reaction Status Date / Time No Known Allergies Allergy Verified 02/26/20 11:06 Review of Systems ROS Other: All systems not noted in ROS Statement are negative. <Nicholas Talbot - Last Filed: 02/26/20 13:14> ROS Other: All systems not noted in ROS Statement are negative. <Asael Henao - Last Filed: 02/26/20 20:31> ROS Statement: Those systems with pertinent positive or pertinent negative responses have been documented in the HPI. Past Medical History Past Medical History: Coronary Artery Disease (CAD), Cancer, Chest Pain / Angina, CVA/TIA, Hyperlipidemia, Hypertension, Myocardial Infarction ([place]), Osteoarthritis ([place]), Prostate Disorder, Renal Disease, Syncope, Thyroid Disorder Additional Past Medical History / Comment(s): colon polyps-colon ca , gout, left side stroke Last Myocardial Infarction Date:: 2007 or 2008 History of Any Multi-Drug Resistant Organisms: None Reported Past Surgical History: Appendectomy, Back Surgery, Bowel Resection, Coronary Bypass/CABG, Heart Catheterization, Joint Replacement, Pacemaker Additional Past Surgical History / Comment(s): Three-vessel CABG in 1987, rt knee arthroscopy, right knee replacement, turp. maco cataracts, colonoscopy last one 10 years ago without any abnormalities, maco ing hernia repair, precancerous lesions on scalp lasered off. Past Anesthesia/Blood Transfusion Reactions: No Reported Reaction Type of Cardiac Device: Permanent Pacemaker Device Placement Date:: 05-24-16 Past Psychological History: No Psychological Hx Reported Smoking Status: Former smoker Past Alcohol Use History: None Reported Past Drug Use History: None Reported - Past Family History Mother Family Medical History: Cancer Additional Family Medical History / Comment(s): Mother at age 76 from stomach cancer Father Family Medical History: Cancer Additional Family Medical History / Comment(s): Father at age 76 from colon cancer Brother(s) Family Medical History: Cancer Additional Family Medical History / Comment(s): One brother at age 42 from brain cancer. One brother had myocardial infarction at age 29. Patient had a total of 4 brothers. Patient has 4 sisters with no major medical problems. Patient has 4 children, 2 boys and 2 girls. One son from a hunting accident. <Asael Henao - Last Filed: 02/26/20 20:31> General Exam Limitations: no limitations General appearance: alert, in no apparent distress Head exam: Present: atraumatic, normocephalic, normal inspection Eye exam: Present: normal appearance, PERRL, EOMI Pupils: Present: normal accommodation ENT exam: Present: normal exam, normal oropharynx, mucous membranes moist, TM's normal bilaterally, normal external ear exam Neck exam: Present: normal inspection, full ROM Respiratory exam: Present: normal lung sounds bilaterally. Absent: respiratory distress, wheezes Cardiovascular Exam: Present: regular rate, normal rhythm, normal heart sounds exam: Present: normal inspection. Absent: testicular tenderness, urethral discharge, scrotal swelling, vertical testicular lie, circumcision Extremities exam: Present: normal inspection, full ROM, normal capillary refill, other (+2 ulnar and radial pulses bilaterally.) Back exam: Present: normal inspection, full ROM. Absent: CVA tenderness (R), CVA tenderness (L) Neurological exam: Present: alert, oriented X3 Psychiatric exam: Present: normal affect, normal mood Skin exam: Present: warm, dry, intact, normal color <Asael Henao - Last Filed: 02/26/20 20:31> Course <Nicholas Talbot - Last Filed: 02/26/20 13:14> Vital Signs 02/26/20 02/26/20 10:30 13:45 Temperature 97.8 F 97.5 F L Pulse Rate 86 88 Respiratory 18 18 Rate Blood Pressure 136/85 O2 Sat by Pulse 98 95 Oximetry - Reevaluation(s) Reevaluation #1: 02/26/20 13:14 85-year-old male with painless hematuria. Patient seen and evaluated, resting comfortably. Patient has urinalysis showing gross hematuria. Ultrasound performed, shows bilateral hydronephrosis. Hemoglobin is stable at 12.5. Patient has urine culture which is pending, will be prescribed antibiotics, encouraged to drink plenty fluids. He is given urology follow-up and strict return parameters. (Nicholas Talbot) Medical Decision Making - Lab Data Result diagrams: 02/26/20 11:15 02/26/20 11:15 <Nicholas Talbot - Last Filed: 02/26/20 13:14> - Lab Data Result diagrams: 02/26/20 11:15 02/26/20 11:15 <Asael Henao - Last Filed: 02/26/20 20:31> - Lab Data Lab Results 02/26/20 02/26/20 02/26/20 Range/Units 10:55 11:15 11:15 WBC 5.1 (3.8-10.6) k/uL RBC 3.91 L (4.30-5.90) m/uL Hgb 12.5 L (13.0-17.5) gm/dL Hct 39.2 (39.0-53.0) % MCV 100.2 H (80.0-100.0) fL MCH 31.9 (25.0-35.0) pg MCHC 31.8 (31.0-37.0) g/dL RDW 13.9 (11.5-15.5) % Plt Count 145 L (150-450) k/uL Neutrophils % 66 % Lymphocytes % 21 % Monocytes % 8 % Eosinophils % 3 % Basophils % 1 % Neutrophils # 3.4 (1.3-7.7) k/uL Lymphocytes # 1.1 (1.0-4.8) k/uL Monocytes # 0.4 (0-1.0) k/uL Eosinophils # 0.2 (0-0.7) k/uL Basophils # 0.0 (0-0.2) k/uL Sodium 138 (137-145) mmol/L Potassium 4.9 (3.5-5.1) mmol/L Chloride 109 H (98-107) mmol/L Carbon Dioxide 23 (22-30) mmol/L Anion Gap 6 mmol/L BUN 45 H (9-20) mg/dL Creatinine 1.78 H (0.66-1.25) mg/dL Est GFR (CKD-EPI)AfAm 38 (>60 ml/min/1.73 sqM) Est GFR (CKD-EPI)NonAf 33 (>60 ml/min/1.73 sqM) Glucose 92 (74-99) mg/dL Calcium 9.1 (8.4-10.2) mg/dL Total Bilirubin 0.7 (0.2-1.3) mg/dL AST 30 (17-59) U/L ALT 19 (4-49) U/L Alkaline Phosphatase 63 (38-126) U/L Total Protein 6.9 (6.3-8.2) g/dL Albumin 4.2 (3.5-5.0) g/dL Urine Color Red Urine Appearance Cloudy (Clear) Urine pH 5.5 (5.0-8.0) Ur Specific [place] 1.012 (1.001-1.035) Urine Protein 1+ H (Negative) Urine Glucose (UA) Negative (Negative) Urine Ketones Negative (Negative) Urine Blood Large H (Negative) Urine Nitrite Negative (Negative) Urine Bilirubin Negative (Negative) Urine Urobilinogen <2.0 (<2.0) mg/dL Ur Leukocyte Esterase Small H (Negative) Urine RBC >182 H (0-5) /hpf Urine WBC 22 H (0-5) /hpf Urine Bacteria Rare H (None) /hpf Disposition <JoseNicholas orellana Thomas - Last Filed: 02/26/20 13:14> Is patient prescribed a controlled substance at d/c from ED?: No Time of Disposition: 13:23 <Asael Henao - Last Filed: 02/26/20 20:31> Clinical Impression: Gross hematuria, Painless hematuria Disposition: HOME SELF-CARE Condition: Stable Additional Instructions: Take prescribed medication as directed. Follow with the urologist. Return to emergency department if symptoms worsen. Prescriptions: Cephalexin [Keflex] 500 mg PO Q6HR #40 cap Referrals: Reyes Dela Cruz MD [Primary Care Provider] - 1-2 days Yordy Aguila MD [STAFF PHYSICIAN] - 1-2 days
[2020-02-26 11:10] LABS: Appearance,Urine Cloudy (Clear); Bacteria,Urine Rare /hpf; Bilirubin,Urine Negative (Negative); Blood,Urine Large (Negative); Color,Urine Red; Glucose,Urine (UA) Negative (Negative); Ketones,Urine Negative (Negative); Leukocyte Esterase,Urine Small (Negative); Nitrite,Urine Negative (Negative); PH, Urine 5.5 (5.0-8.0); Protein,Urine 1+ (Negative); RBC,Urine >182 /hpf (0-5); Specific Gravity,Urine 1.012 (1.001-1.035); Urobilinogen,Urine <2.0 mg/dL (<2.0); WBC,Urine 22 /hpf (0-5)
[2020-02-26 11:32] LABS: Basophils % (A) 1 %; Eosinophils # (A) 0.2 k/uL (0-0.7); Eosinophils % (A) 3 %; HCT 39.2 % (39.0-53.0); HGB 12.5 gm/dL (13.0-17.5); Lymphocytes # (A) 1.1 k/uL (1.0-4.8); Lymphocytes % (A) 21 %; MCH 31.9 pg (25.0-35.0); MCHC 31.8 g/dL (31.0-37.0); MCV 100.2 fL (80.0-100.0); Mean Platelet Volume 7.9; Monocytes # (A) 0.4 k/uL (0-1.0); Monocytes % (A) 8 %; Neutrophils # (A) 3.4 k/uL (1.3-7.7); Neutrophils % (A) 66 %; Platelet Count 145 k/uL (150-450); RBC 3.91 m/uL (4.30-5.90); RDW 13.9 % (11.5-15.5); WBC 5.1 k/uL (3.8-10.6)
[2020-02-26 11:49] LABS: Albumin 4.2 g/dL (3.5-5.0); Calcium 9.1 mg/dL (8.4-10.2); Potassium 4.9 mmol/L (3.5-5.1); Total Bilirubin 0.7 mg/dL (0.2-1.3); Total Protein 6.9 g/dL (6.3-8.2)
--- NOTE | 2020-02-26 12:46 | US ---
EXAMINATION TYPE: US kidneys/renal and bladder DATE OF EXAM: 02/26/2020 COMPARISON: NONE CLINICAL HISTORY: painless Gross hematuria. Hematuria EXAM MEASUREMENTS: Right Kidney: 9.1 x 4.6 x 4.2 cm Left Kidney: 9.1 x 5.1 x 4.1 cm Right Kidney: mild hydronephrosis Left Kidney: mild hydronephrosis Bladder: wnl Bilateral Jets seen: yes Urinary bladder is sonolucent. Posterior wall is normal. IMPRESSION: 1. Mild left hydronephrosis. 2. Mild right hydronephrosis is less apparent than on the left.
[2020-02-26 13:46] VITALS: PULSE 88; TEMP 97.5
== END 2020-02-26 13:46 | disposition home or self-care (01) ==
LOC: EC 10:28
DX: N13.30 Unspecified hydronephrosis (principal); R31.0 Gross hematuria; I25.119 Atherosclerotic heart disease of native coronary artery with unspecified angina pectoris; E78.5 Hyperlipidemia, unspecified; I10 Essential (primary) hypertension; I25.2 Old myocardial infarction; M19.90 Unspecified osteoarthritis, unspecified site; M10.9 Gout, unspecified; Z79.82 Long term (current) use of aspirin; Z79.899 Other long term (current) drug therapy; Z85.038 Personal history of other malignant neoplasm of large intestine; Z86.73 Personal history of transient ischemic attack (TIA), and cerebral infarction without residual deficits; Z87.891 Personal history of nicotine dependence; Z95.1 Presence of aortocoronary bypass graft; Z95.5 Presence of coronary angioplasty implant and graft; Z96.651 Presence of right artificial knee joint; Z98.890 Other specified postprocedural states; Z90.49 Acquired absence of other specified parts of digestive tract
CPT/HCPCS: 36415; 76770; 80053; 81001; 85025; 87086; 99284

== ENCOUNTER → 2020-03-31 | Outpatient (CLI) | payer MEDICARE, BC ==
--- NOTE | 2020-04-01 04:54 | CT ---
EXAMINATION TYPE: CT urogram wo/w con DATE OF EXAM: 03/31/2020 COMPARISON: Correlation ultrasound 02/26/2020 HISTORY: 89-year-old male R31.0, hematuria TECHNIQUE: Contiguous axial scanning of the abdomen and pelvis performed without and with IV Contrast , patient injected with 80 mL of Isovue 300. Delayed images through the kidneys and bladder were obta ined. Coronal/sagittal reconstructions performed. 3-D reconstructions generated on a dedicated [employer] workstation. CT DLP: 2482 mGycm Automated exposure control for dose reduction was used. FINDINGS: Median sternotomy wires are present. Pacer leads are noted as well as postoperative changes. Emphysem atous change in the visualized lower lungs as well as band of atelectasis at the left base. Moderate to severe atherosclerotic plaque and calcification throughout the abdominal aorta and iliac arteries. The visualized thoracic aorta is tortuous. 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 At the diaphragmatic hiatus, it is aneurysmal at 4.1 cm. Infrarenal segment is aneurysmal at 4.0 cm. 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 No focal liver lesion. No biliary ductal dilatation. There is a 2.2 cm diverticulum of the second por tion of the duodenum projecting into the pancreatic head region. Portal venous system is patent. Gallbladder is mildly hydropic and 5.0 cm wide with small layering gallstones. Adrenal glands and pancreas appear within normal limits. Calcified granulomas within the spleen with a tiny inferior splenule. No dilated small bowel, free fluid, free air. No mesenteric or retroperitoneal lymphadenopathy seen. Left-sided colonic diverticulosis. There appears to be a staple line at the distal sigmoid from prior resection and reanastomosis. Kidneys show no evidence for nephrolithiasis. There are bilateral extrarenal pelves versus mild pelvi caliectasis. Symmetric uptake of contrast from both kidneys though with a relative delayed excretion as contrast did not extend to the mid or distal ureters or into the bladder on the 10 minute delayed scan. No suspicious renal lesion and no suspicious filling defects seen within the renal collecting systems . Assessment of the ureters is limited due to nonopacification. There is moderate circumferential bladder wall thickening. Some possible underlying 1.5 cm mural base d nodularity along the anterior superior left bladder wall, axial image 66 and sagittal image 87. Prostate gland measures 4.3 cm wide. No abnormal fluid collection the pelvis or pelvic lymphadenopath y. Bones: Moderate to advanced multilevel spondylotic change. Degenerative grade 1 retrolisthesis and L1 -L2. IMPRESSION: 1. THE EXAM IS LIMITED. THERE IS A RELATIVE DELAY IN EXCRETION OF CONTRAST FROM THE KIDNEYS. CORRELAT E WITH PATIENT'S KIDNEY FUNCTION AND EXCLUDE JOSEPH. ON THE 10 MINUTE DELAYED SCAN, CONTRAST FILLS ONLY THE RENAL COLLECTING SYSTEMS. NO SUSPICIOUS FILLING DEFECT HERE AND NO SUSPICIOUS RENAL LESION. THE U RETERS REMAIN INADEQUATELY EVALUATED. 2. MODERATE CIRCUMFERENTIAL BLADDER WALL THICKENING COULD REPRESENT CHRONIC BLADDER WALL HYPERTROPHY OR CYSTITIS. IN ADDITION, THERE IS 1.5 CM MURAL BASED NODULARITY ALONG THE ANTERIOR LEFT BLADDER DOME . UROTHELIAL NEOPLASM SHOULD BE EXCLUDED. CORRELATE WITH URINE CYTOLOGY, URINALYSIS, AND DIRECT VISUA LIZATION INDICATED. 3. SUSPECT BILATERAL EXTRARENAL PELVES RATHER THAN MILD PELVICALIECTASIS. NO RENAL CALCULI. 4. MILD GALLBLADDER HYDROPS WITH CHOLELITHIASIS. THE GALLBLADDER DISTENTION PROBABLY RELATES TO FASTI NG STATE. IF RIGHT UPPER QUADRANT PAIN OR CONCERN FOR EARLY ACUTE CHOLECYSTITIS, FOLLOW-UP ULTRASOUND OR HIDA SCAN. 5. 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 [facility] VASCULAR SURGERY FOLLOW-UP RECOMMENDED. COPD AND SCATTERED LEFT-SIDED COLONIC DIVERTICULOSIS.
== END | disposition home or self-care (01) ==
LOC: RADCTMAIN 15:07
PROVIDERS: ATTEND Urology
DX: N32.89 Other specified disorders of bladder (principal); R31.0 Gross hematuria
CPT/HCPCS: 82565; 84520; 74178; 36415; 74400; Q9967

== ENCOUNTER 2020-04-26 08:15 | Day surgery (SDC) | payer MEDICARE, BC ==
[2020-04-22 09:55] VITALS: BMI 22.6
--- NOTE | 2020-04-25 18:38 | P.HPIHPCON ---
History of Present Illness H&P Date: 04/26/20 Chief Complaint: Bladder tumor Mr Lopez is an 89 yo male with hx of gross hematuria, he underwent an office cysto which showed multiple bladder tumor. The right ureteral orfice could not be visualized secondary to bladder tumors. I discussed with patient and his daughter given this finding I recommend he undergoes TURBT with possibile right ureteral stent placement. I discussed the risk of bleeding, infection, and bladder perforation. 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 But discussed with them given his symptomatic hematuria from his bladder tumor, I do recommed we proceed with TURBT. The understood all risks and agreed to proceed. Consent for Procedure: I have explained the operation/procedure to the patient, including the risks, benefits, side effects, alternative therapies (including not receiving the proposed treatment or service), the likelihood of the patient achieving his/her goals, and potential recuperation problems for the procedure/sedation/analgesia, as well as any blood products, if indicated. I also explained to the patient the risks, benefits and side effects of the alternatives, as well as the risks related to not receiving the proposed procedure, care, treatment, or services. - Constitutional Constitutional: Denies chills, Denies fever - Cardiovascular Cardiovascular: Denies chest pain, Denies shortness of breath - Respiratory Respiratory: Denies cough, Denies 7 Past Medical History Past Medical History: Coronary Artery Disease (CAD), Cancer, Chest Pain / Angina, CVA/TIA, Hyperlipidemia, Hypertension, Myocardial Infarction ([place]), Osteoarthritis (OA), Prostate Disorder, Renal Disease, Syncope, Thyroid Disorder Additional Past Medical History / Comment(s): colon polyps-colon ca , gout, left side stroke. pt states they found aneurysms on his aorta during his ER visit 04/01/20 Last Myocardial Infarction Date:: 2007 or 2008 History of Any Multi-Drug Resistant Organisms: None Reported Past Surgical History: Appendectomy, Back Surgery, Bowel Resection, Coronary Bypass/CABG, Heart Catheterization, Hernia Repair, Joint Replacement, Pacemaker Additional Past Surgical History / Comment(s): Three-vessel CABG in 1987, rt knee arthroscopy, right knee replacement, turp., precancerous lesions on scalp lasered off. Past Anesthesia/Blood Transfusion Reactions: No Reported Reaction Type of Cardiac Device: Permanent Pacemaker Device Placement Date:: 05-24-16 Smoking Status: Former smoker - Past Family History Mother Family Medical History: Cancer Additional Family Medical History / Comment(s): Mother at age 76 from stomach cancer Father Family Medical History: Cancer Additional Family Medical History / Comment(s): Father at age 76 from colon cancer Brother(s) Family Medical History: Cancer Additional Family Medical History / Comment(s): One brother at age 42 from brain cancer. One brother had myocardial infarction at age 29. Patient had a total of 4 brothers. Patient has 4 sisters with no major medical problems. Patient has 4 children, 2 boys and 2 girls. One son from a hunting accident. Medications and Allergies Home Medications Medication Instructions Recorded Confirmed Type Atorvastatin [Lipitor] 20 mg PO DAILY 04/25/16 04/22/20 History allopurinoL [Zyloprim] 100 mg PO DAILY 04/25/16 04/22/20 History Aspirin 81 mg PO DAILY 02/26/20 04/22/20 History amLODIPine [Norvasc] 2.5 mg PO DAILY 02/26/20 04/22/20 History lisinopriL 20 mg PO BID 02/26/20 04/22/20 History [place]-3 Fatty Acids/Fish Oil [Fish 1 each PO QAM 04/22/20 04/22/20 History Oil 1,000 mg Softgel] Allergies Allergy/AdvReac Type Severity Reaction Status Date / Time No Known Allergies Allergy Verified 04/22/20 09:32 Surgical - Exam - General well developed, well nourished, no distress, no pain - ENT normal nares, normal mucosa - Respiratory normal expansion, normal respiratory effort Assessment and Plan Assessment: 89 yo male with hx of bladder tumor -OR for TURBT with right Ureteral stent placement
[~2020-04-26 08:15] MED LIST: CIPROFLOXACIN/DEXTROSE PMX 400 MG in DEXTROSE/WATER 1 200ML.BAG IVPB ONE; DEXAMETHASONE SOD PHOSPHATE 10 MG/ML 1 ML VIAL IV ONE; LACTATED RINGERS 1,000 ML IV SCH; LIDOCAINE 1% (10MG/ML) FOR IV START INTRADERMA PRN; MIDAZOLAM 2 MG/2 ML VIAL IV PRN; fentaNYL (PF) 50 MCG/ML 2 ML AMP IV PRN
[2020-04-26] MEDS ORDERED: DEXAMETHASONE SOD PHOSPHATE 10 MG/ML 1 ML VIAL IV ONE (08:58)
[2020-04-26] MEDS ORDERED: GLYCOPYRROLATE 0.2 MG/ML 2 ML VIAL ONE (09:19)
[2020-04-26] MEDS ORDERED: PROPOFOL 10 MG/ML 20 ML VIAL IV ONE (09:19)
[2020-04-26] MEDS ORDERED: ROCURONIUM BROMIDE 10 MG/ML 5 ML VIAL IV ONE (09:19)
[2020-04-26] MEDS ORDERED: fentaNYL (PF) 50 MCG/ML 2 ML AMP ONE (09:19)
[2020-04-26] MEDS ORDERED: LIDOCAINE 1% INJ 10MG/ML (20 ML MDV) ONE (09:19)
[2020-04-26] MEDS ORDERED: NEOSTIGMINE 1 MG/ML 10 ML VIAL ONE (09:19)
--- NOTE | 2020-04-26 10:59 | P.OP ---
Date of Procedure: 04/26/20 Preoperative Diagnosis: bladder tumor Postoperative Diagnosis: same Procedure(s) Performed: TURBT (large) Implants: none Anesthesia: NIKHIL Surgeon: Yordy Aguila Estimated Blood Loss (ml): 20 Pathology: other (bladder tumor) Condition: stable Disposition: PACU Indications for Procedure: Mr Lopez is an 89 yo male with hx of gross hematuria, he underwent an office cysto which showed multiple bladder tumor. The right ureteral orfice could not be visualized secondary to bladder tumors. I discussed with patient and his daughter given this finding I recommend he undergoes TURBT with possibile right ureteral stent placement. I discussed the risk of bleeding, infection, and bladder perforation. 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 But discussed with them given his symptomatic hematuria from his bladder tumor, I do recommed we proceed with TURBT. The understood all risks and agreed to proceed. Operative Findings: 2 large bladder tumors, one along the right lateral wall away from the UO measured approximately 3 cm, an additional area along the bladder dome that measured approximately 5 cm. Throughout the bladder there was significant amount small papillary lesions along the mucosa those lesions were fulgurated Description of Procedure: Patient was brought to the operating room, general anesthesia was induced. He was prepped and draped in sterile fashion was in a dorsal lithotomy position. resectoscope fitted with 27 fr sheath was reinserted. 2 large bladder tumors 1 along the right lateral wall that measured 3 cm and additional tumor that measured about 5 cm along the bladder dome. Of note arterial pulsation was noticed near the right lateral wall tumor and the lateral edge of the bladder dome tumor. Thus superficial resection was performed at this area given the risk of vascular injury. Tumors were resected down and the area of resection was thoroughly fulgurated. Total area of resection was approximately 8 cm. The specimen was sent for pathology. Throughout the bladder there was significant amount of small papillary extension along the mucosa. Those areas were thoroughly fulgurated using cautery There was no evidence of bladder perforation. Repeat cystoscopy showed no additional tumors. The bladder was emptied and the case. A 22-[place] catheter was placed with return of clear urine. The patient tolerated procedure well was taken to PACU in stable condition
[2020-04-26 11:06] VITALS: TEMP 97
[2020-04-26 11:10] VITALS: RESP 16
[2020-04-26 12:47] VITALS: BP 150/84; PULSE 76
== END 2020-04-26 13:38 | disposition home or self-care (01) ==
LOC: OR 08:15
PROVIDERS: ATTEND Urology
DX: C67.2 Malignant neoplasm of lateral wall of bladder (principal); C67.1 Malignant neoplasm of dome of bladder; I71.2 Thoracic aortic aneurysm, without rupture; I10 Essential (primary) hypertension; I25.2 Old myocardial infarction; I25.10 Atherosclerotic heart disease of native coronary artery without angina pectoris; M19.90 Unspecified osteoarthritis, unspecified site; E78.5 Hyperlipidemia, unspecified; E07.9 Disorder of thyroid, unspecified; M10.9 Gout, unspecified; Z98.890 Other specified postprocedural states; Z90.49 Acquired absence of other specified parts of digestive tract; Z79.899 Other long term (current) drug therapy; Z86.73 Personal history of transient ischemic attack (TIA), and cerebral infarction without residual deficits; Z87.891 Personal history of nicotine dependence; Z95.1 Presence of aortocoronary bypass graft; Z95.0 Presence of cardiac pacemaker; Z86.010 Personal history of colon polyps; Z79.82 Long term (current) use of aspirin; Z80.0 Family history of malignant neoplasm of digestive organs; Z80.8 Family history of malignant neoplasm of other organs or systems; Z82.49 Family history of ischemic heart disease and other diseases of the circulatory system
CPT/HCPCS: 88307; 52240; J1100; J2710; J2001; J3010; J0744; J2704

== ENCOUNTER 2020-04-26 21:19 | Emergency (ER) | payer MEDICARE, BC ==
[2020-04-26 21:28] VITALS: BP 159/80; PULSE 102; RESP 20; TEMP 98.1
--- NOTE | 2020-04-26 22:04 | ED ---
General Adult HPI - General Chief complaint: Recheck/Abnormal Lab/Rx Stated complaint: Post surgical recheck Time Seen by Provider: 04/26/20 21:56 Source: patient, family Mode of arrival: ambulatory Limitations: physical limitation - History of Present Illness Initial comments: Dictation was produced using [employer] dictation software. please excuse any grammatical, word or spelling errors. This patient was cared for during a federal and state declared state of emergency secondary to Covid 19 Chief Complaint: 89-year-old male with concerns of Mcdowell catheter malfunction. History of Present Illness: Is 89-year-old male he recently had cystoscopy with bladder cancer procedure performed by urology. Patient had a Mcdowell catheter placed. He notes that there was bloody discharge coming from his Mcdowell catheter. He is concerned that perhaps his Mcdowell catheter was clogged. No other complaints at this time The ROS documented in this emergency department record has been reviewed and confirmed by me. Those systems with pertinent positive or negative responses have been documented in the HPI. All other systems are other negative and/or noncontributory. PHYSICAL EXAM: General Impression: Alert and oriented x3, not in acute distress HEENT: Normocephalic atraumatic, extra-ocular movements intact, pupils equal and reactive to light bilaterally, mucous membranes moist. Cardiovascular: Heart regular rate and rhythm Chest: Able to complete full sentences, no retractions, no tachypnea Abdomen: abdomen soft, non-tender, non-distended, no organomegaly Musculoskeletal: Pulses present and equal in all extremities, no peripheral edema Motor: no focal deficits noted Neurological: CN II-XII grossly intact, no focal motor or sensory deficits noted Skin: Intact with no visualized rashes Psych: Normal affect and mood ED course: 89-year-old male presents with concerns of Mcdowell catheter malfunction. Signs upon arrival are within acceptable limits. Patient's well- appearing at bedside. Bladder scan was performed. There is 100 mL of urine. Mcdowell catheter was flushed without any resistance and clear drainage. Mcdowell catheter appears to be working well. Patient clear for discharge told to follow-up with his urologist. - Related Data Home Medications Medication Instructions Recorded Confirmed Atorvastatin [Lipitor] 20 mg PO DAILY 04/25/16 04/26/20 allopurinoL [Zyloprim] 100 mg PO DAILY 04/25/16 04/26/20 Aspirin 81 mg PO DAILY 02/26/20 04/26/20 amLODIPine [Norvasc] 2.5 mg PO DAILY 02/26/20 04/26/20 lisinopriL 20 mg PO BID 02/26/20 04/26/20 [place]-3 Fatty Acids/Fish Oil [Fish 1 each PO QAM 04/22/20 04/26/20 Oil 1,000 mg Softgel] Previous Rx's Medication Instructions Recorded Cephalexin [Keflex] 500 mg PO Q8HR #15 cap 04/26/20 Phenazopyridine HCl [Pyridium] 100 mg PO TID 3 Days #9 tab 04/26/20 Allergies Allergy/AdvReac Type Severity Reaction Status Date / Time No Known Allergies Allergy Verified 04/26/20 21:28 Review of Systems ROS Statement: Those systems with pertinent positive or pertinent negative responses have been documented in the HPI. ROS Other: All systems not noted in ROS Statement are negative. Past Medical History Past Medical History: Coronary Artery Disease (CAD), Cancer, Chest Pain / Angina, CVA/TIA, Hyperlipidemia, Hypertension, Myocardial Infarction ([place]), Osteoarthritis (OA), Prostate Disorder, Renal Disease, Syncope, Thyroid Disorder Additional Past Medical History / Comment(s): colon polyps-colon ca , gout, left side stroke. pt states they found aneurysms on his aorta during his ER visit 04/01/20 Last Myocardial Infarction Date:: 2007 or 2008 History of Any Multi-Drug Resistant Organisms: None Reported Past Surgical History: Appendectomy, Back Surgery, Bowel Resection, Coronary Bypass/CABG, Heart Catheterization, Hernia Repair, Joint Replacement, Pacemaker Additional Past Surgical History / Comment(s): Three-vessel CABG in 1987, rt knee arthroscopy, right knee replacement, turp., precancerous lesions on scalp lasered off. Past Anesthesia/Blood Transfusion Reactions: No Reported Reaction Type of Cardiac Device: Permanent Pacemaker Device Placement Date:: 05-24-16 Past Psychological History: No Psychological Hx Reported Smoking Status: Former smoker Past Alcohol Use History: None Reported Past Drug Use History: None Reported - Past Family History Mother Family Medical History: Cancer Additional Family Medical History / Comment(s): Mother at age 76 from stomach cancer Father Family Medical History: Cancer Additional Family Medical History / Comment(s): Father at age 76 from colon cancer Brother(s) Family Medical History: Cancer Additional Family Medical History / Comment(s): One brother at age 42 from brain cancer. One brother had myocardial infarction at age 29. Patient had a total of 4 brothers. Patient has 4 sisters with no major medical problems. Patient has 4 children, 2 boys and 2 girls. One son from a hunting accident. General Exam Limitations: physical limitation Course Vital Signs 04/26/20 21:26 Temperature 98.1 F Pulse Rate 102 H Respiratory 20 Rate Blood Pressure 159/80 O2 Sat by Pulse 99 Oximetry Disposition Clinical Impression: Mcdowell catheter in place Disposition: HOME SELF-CARE Condition: Good Is patient prescribed a controlled substance at d/c from ED?: No Referrals: Yordy Aguila MD [STAFF PHYSICIAN] - 1-2 days Time of Disposition: 22:04
== END 2020-04-26 22:15 | disposition home or self-care (01) ==
LOC: EC 21:19
DX: Z48.816 Encounter for surgical aftercare following surgery on the genitourinary system (principal); E78.5 Hyperlipidemia, unspecified; M10.9 Gout, unspecified; I25.119 Atherosclerotic heart disease of native coronary artery with unspecified angina pectoris; I10 Essential (primary) hypertension; Z79.82 Long term (current) use of aspirin; Z79.899 Other long term (current) drug therapy; I25.2 Old myocardial infarction; Z85.51 Personal history of malignant neoplasm of bladder; Z95.1 Presence of aortocoronary bypass graft; Z95.5 Presence of coronary angioplasty implant and graft; Z96.651 Presence of right artificial knee joint; Z98.890 Other specified postprocedural states; Z87.891 Personal history of nicotine dependence
CPT/HCPCS: 99283

== ENCOUNTER → 2020-06-25 | Outpatient (CLI) | payer MEDICARE, BC ==
--- NOTE | 2020-06-25 18:02 | CT ---
EXAMINATION TYPE: CT angio chest DATE OF EXAM: 06/25/2020 2:21 PM COMPARISON: CT urogram 03/31/2020. HISTORY: Thoracic aortic aneurysm CT DLP: 279.8 mGycm Automated exposure control for dose reduction was used. CONTRAST: CTA scan of the thorax is performed with IV Contrast, patient injected with 80 mL of Isovue 370, thor acic aortic aneurysm protocol. 3D reconstructed images are created on an independent workstation and reviewed. FINDINGS: LUNGS: Moderate paraseptal and centrilobular emphysema, with bullous changes of the posterior lung ba ses. No concerning parenchymal mass or nodule identified. There is no pleural effusion or pneumotho rax seen. The tracheobronchial tree is patent. MEDIASTINUM: Sternotomy wires. 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 Calcified and n oncalcified atherosclerotic disease of the thoracic aorta. There is proximal descending thoracic aort ic aneurysm up to 4.0 cm. There is distal descending thoracic aortic aneurysm up to 4.0 cm. There is aneurysmal dilatation of the aorta at the diaphragmatic hiatus measuring up to 4.0 cm. Mildly tortuo us course of the descending thoracic aorta. There is no evidence of thoracic aortic dissection. Main pulmonary artery measures up to 2.9 cm. Cardiac size normal. Calcified coronary artery disease. No pe ricardial effusion. No axillary, mediastinal, or hilar lymphadenopathy. OTHER: The incompletely visualized infrarenal abdominal aortic aneurysm measures up to 3.8 cm. Calci fied and noncalcified atherosclerotic disease of the visualized abdominal aorta and its major branche s. Gynecomastia bilaterally. Degenerative changes of the spine. IMPRESSION: 1. Proximal and distal descending thoracic aortic aneurysm measuring up to 4.0 cm. No thoracic aortic dissection. 2. Incompletely visualized infrarenal abdominal aortic aneurysm measuring up to 3.8 cm. 3. Emphysema.
== END | disposition home or self-care (01) ==
LOC: RADCTMAIN 12:55
PROVIDERS: ATTEND Nurse Practitioner Adult Health
DX: I71.2 Thoracic aortic aneurysm, without rupture (principal); I71.4 Abdominal aortic aneurysm, without rupture; J43.9 Emphysema, unspecified
CPT/HCPCS: 82565; 84520; 71275; 36415; Q9967

== ENCOUNTER → 2020-09-30 | Outpatient (CLI) | payer MEDICARE, BC | END | disposition home or self-care (01) | LOC: LABWHC1 13:25 | PROVIDERS: ATTEND Ophthalmology | DX: Z01.812 Encounter for preprocedural laboratory examination (principal); Z20.822 Contact with and (suspected) exposure to COVID-19; D48.5 Neoplasm of uncertain behavior of skin | CPT/HCPCS: U0003; C9803; U0005 ==